=== PATIENT | male | born 1955 | race Hispanic/Latino ===

== ENCOUNTER 2019-01-15 07:24 | Day surgery (SDC) | payer MEDICAID ==
[2019-01-15] MEDS ORDERED: PROVENTIL IH NR (08:45)
[2019-01-15] MEDS ORDERED: NACL 0.9% 1000 ML 1,000 ML IV SCH (09:00)
[2019-01-15] MEDS ORDERED: WATER FOR IRRIG STERILE ONE (09:34)
[2019-01-15] MEDS ORDERED: WATER FOR IRRIG STERILE IR ONE (09:34)
[2019-01-15] MEDS ORDERED: DIPRIVAN 10 MG/ML IV ONE ×2 (09:35→09:36)
--- NOTE | 2019-01-15 10:11 | Short Stay Summary ---
Short Stay Documentation Date of service: 01/15/19 Narrative H&P: Patient presents for diagnostic colonoscopy for hematochezia and a history of weight loss. - History Past Medical History: COPD Past Surgical History: appendectomy Social history: smoking, alcohol abuse - Allergies and Medications Current Medications: Allergies No Known Allergies Allergy (Verified 05/27/15 17:29) Home Medications Medication Instructions Recorded Confirmed Last Taken Type Albuterol Sulfate [Proventil HFA] 1 - 2 puff IH Q4H PRN 10/25/14 01/15/19 01/15/19 History Metoprolol [Lopressor TAB] 50 mg PO BID #60 tablet 04/22/15 01/15/19 01/15/19 Rx Tiotropium [Spiriva] 1 puff IH QDAY #1 box 04/22/15 01/15/19 01/15/19 Rx Aspirin 81 mg PO DAILY 04/20/16 01/15/19 01/14/19 History Ipratropium/Albuterol Sulfate 1 ampul IH Q6HR PRN 04/20/16 01/15/19 01/15/19 History [DUONEB *Not for PRN Use*] Simvastatin (Nf) [Zocor TAB] 20 mg PO QHS #30 tablet 08/04/16 01/15/19 01/14/19 Rx NIFEdipine 60 mg PO DAILY 01/15/19 01/15/19 01/15/19 History Active Medications Sodium Chloride (Nacl 0.9% 1000 Ml) 1,000 mls @ 50 mls/hr IV DIRECT HERIBERTO Last Admin: 01/15/19 08:49 Dose: 50 mls/hr Documented by: - Physical exam General appearance: no acute distress, other (Thin body habitus) Integumentary: no rash, no growths, no abnormal pigmentation HEENT: Atraumatic, PERRLA, EOMI, Mucous membr. moist/pink Lungs: Normal air movement, Other (Mild expiratory wheezing) Breasts: deferred Heart: Regular rate, Normal S1, Normal S2, No murmurs Gastrointestinal: normoactive bowel sounds, no tenderness, no distended, no masses, no organomegaly Male Genitourinary: deferred Rectal Exam: normal exam-external/orifice, normal rectal tone, no mass Extremities: no ischemia, pulses intact, pulses symmetrical, No edema, normal temperature, normal color, Full ROM Neurological: Normal gait, Normal speech, Strength at 5/5 X4 ext, Normal tone, Sensation intact, Cranial nerves 3-12 NL - Brief post op/procedure progress note Date of procedure: 01/15/19 Findings: see dictated report Estimated blood loss: none Pathology: list (diminutive ascending colon polyp) Specimen disposition: to lab Condition: stable - Disposition Condition at discharge: Good Disposition: DC-01 TO HOME OR SELFCARE - Discharge Diagnoses (1) Hematochezia Status: Acute (2) Weight loss Status: Acute Short Stay Discharge Plan Activity: other (No driving for 24 hours) Weight Bearing Status: Weight Bear as Tolerated Diet: regular Follow up with: GT VELA MD [Primary Care Provider] - 7 Days
--- NOTE | 2019-01-15 10:15 | Operative Report ---
Operative Report Operative Report: Date of procedure: 01/15/2019 Preprocedure diagnosis: Recent hematochezia. Weight loss. Post procedure diagnosis: Diminutive ascending colon polyp. Internal hemorrhoids. Fair prep. Procedure: Colonoscopy to the cecum with cold snare polypectomy. Endoscopist: Dr. Asher Anesthesia: Monitored anesthesia care per anesthesia department Estimated blood loss: 0 Medications: Monitored anesthesia care. See separate report by anesthesia for details. After careful discussion of the nature and purpose of the procedure as well as details of the technique risks benefits and alternatives the patient gave consent. Please see recent history and physical from the office. The patient was placed in the left lateral decubitus position and medicated per anesthesia. A rectal exam was performed sphincter tone was normal there were no masses palpable. The expresscoinn 570 scope was passed transanally and advanced under continuous direct vision without difficulty to the cecum. The colon preparation was fair. There were some areas of thick liquid stool in the left colon which could not be completely aspirated clear and lavaged. The cecum was normal. The ascending colon reveals a 5mm, diminutive polyp which was removed with cold snare resection and retrieved by suction. The ascending colon otherwise was normal and on forward and retroflexed views. The transverse colon, descending colon, and sigmoid colon were normal. The rectum revealed small internal hemorrhoids on retroflexed view but was otherwise normal. The procedure was well-tolerated overall and the patient was observed in recovery. Conclusions: Diminutive ascending colon polyp. Internal hemorrhoids. No evidence of mass lesion. Fair prep in some areas of the left colon makes occlusion of small lesions less than 6 mm difficult. Plan: Repeat colonoscopy in 3-5 years. The patient will call the office regarding the pathology report in the next 10 days. Signed electronically: Hernandez Asher M.D.
[2019-01-15 10:57] VITALS: BP 104/75
[2019-01-15] MEDS ORDERED: XYLOCAINE MPF 2% ONE (13:30)
== END 2019-01-15 07:25 | disposition home or self-care (01) ==
LOC: GIO 07:24
PROVIDERS: ATTEND Internal Medicine Gastroenterology
DX: D12.2 Benign neoplasm of ascending colon (principal); K64.8 Other hemorrhoids; J44.9 Chronic obstructive pulmonary disease, unspecified; R74.8 Abnormal levels of other serum enzymes; I10 Essential (primary) hypertension; F17.210 Nicotine dependence, cigarettes, uncomplicated; D69.6 Thrombocytopenia, unspecified; E78.00 Pure hypercholesterolemia, unspecified; M19.90 Unspecified osteoarthritis, unspecified site; F10.239 Alcohol dependence with withdrawal, unspecified; Z90.49 Acquired absence of other specified parts of digestive tract; Z91.81 History of falling; Z98.890 Other specified postprocedural states; Z72.89 Other problems related to lifestyle; Z79.82 Long term (current) use of aspirin; Z86.73 Personal history of transient ischemic attack (TIA), and cerebral infarction without residual deficits
CPT/HCPCS: 45385; 88305; J2704; J7030

== ENCOUNTER 2019-08-27 06:14 | Inpatient (IN) | payer MEDICAID, OTHER ==
[2019-08-27] MEDS ORDERED: ALBUTEROL 2.5 MG/3 ML NEBU IH ONE ×2 (06:26→08:35)
[2019-08-27] MEDS ORDERED: IPRATROPIUM 0.02% NEBU 2.5 ML IH ONE (06:28)
[2019-08-27] MEDS ORDERED: MAGNESIUM SULFATE 2 GM/50 ML BAG IV ONE (06:53)
[2019-08-27] MEDS ORDERED: SODIUM CHLORIDE 0.9% 1000 ML 1,000 ML IV ONE ×2 (06:53→10:12)
[2019-08-27] MEDS ORDERED: methylPREDNISolone Sod Succinate 125 MG/2 ML INJ IV ONE (06:53)
--- NOTE | 2019-08-27 07:11 | Emergency Department Report ---
HPI - General Chief Complaint: Dyspnea/Respdistress Time Seen by Provider: 08/27/19 06:47 - HPI HPI: 63-year-old male presents to the emergency department via EMS from home with complaint of shortness of breath, wheezing, mixed dry and productive cough that has been going on for the past 4 days. The patient says "I think it is my COPD." Besides the COPD, the patient also has a history of CVA without residual deficits, osteoarthritis, hypertension. He is not oxygen dependent at home. He is a current tobacco smoker but denies any illicit drug use. The patient also complains of a one-month history of some intermittent left shoulder and upper arm pain. He denies any chest pain, lower extremity edema, back pain, fever, nausea, vomiting or diaphoresis. The patient has been using his home inhalers and nebulizer without any relief. His primary care physician is Dr. Dutta. No recent travel or sick contacts at home. ED Past Medical Hx - Past Medical History Previous Medical History?: Yes Hx Hypertension: Yes Hx CVA: Yes Hx Diabetes: No Hx Arthritis: Yes Hx Asthma: Yes Hx COPD: Yes (no home O2) Additional medical history: Irreg hearbeat. enlarged prostate. spinal stenosis. cyst on pancreas. pancreatitis - Surgical History Past Surgical History?: Yes Hx Appendectomy: Yes - Social History Smoking Status: Light Tobacco Smoker Substance Use Type: None - Medications Home Medications: Home Medications Medication Instructions Recorded Confirmed Last Taken Type Albuterol Sulfate [Proventil HFA] 1 - 2 puff IH Q4H PRN 10/25/14 01/15/19 01/15/19 History Metoprolol [Lopressor TAB] 50 mg PO BID #60 tablet 04/22/15 01/15/19 01/15/19 Rx Tiotropium [Spiriva] 1 puff IH QDAY #1 box 04/22/15 01/15/19 01/15/19 Rx Aspirin 81 mg PO DAILY 04/20/16 01/15/19 01/14/19 History Ipratropium/Albuterol Sulfate 1 ampul IH Q6HR PRN 04/20/16 01/15/19 01/15/19 History [DUONEB *Not for PRN Use*] Simvastatin (Nf) [Zocor TAB] 20 mg PO QHS #30 tablet 01/01/15/19 01/14/19 Rx NIFEdipine 60 mg PO DAILY 01/15/19 01/15/19 01/15/19 History ED Review of Systems ROS: Stated complaint: AMILCAR Other details as noted in HPI Comment: All other systems reviewed and negative Constitutional: denies: chills, fever Eyes: denies: eye pain, vision change ENT: denies: ear pain, throat pain Respiratory: cough, shortness of breath, wheezing Cardiovascular: denies: chest pain, edema Gastrointestinal: denies: abdominal pain, vomiting Genitourinary: denies: dysuria, discharge Musculoskeletal: arthralgia, myalgia. denies: back pain Skin: denies: rash, lesions Neurological: denies: headache, numbness, paresthesias Physical Exam - Physical Exam Vital Signs: Vital Signs 08/27/19 08/27/19 06:15 06:19 Temperature 97.7 F Pulse Rate 114 H Pulse Rate [ 114 H Anterior Bilateral Throughout] Respiratory 18 Rate Respiratory 18 Rate [Anterior Bilateral Throughout] Blood Pressure 125/87 O2 Sat by Pulse 94 Oximetry Physical Exam: GENERAL: The patient is well-developed well-nourished. HENT: Normocephalic. Atraumatic. Patient has moist mucous membranes. EYES: Extraocular motions are intact. NECK: Supple. Trachea is midline. CHEST/LUNGS: Moderate wheezing throughout the chest. There is some tachypnea but no accessory muscle use. There is no respiratory distress noted. HEART/CARDIOVASCULAR: Regular. There is mild tachycardia. There is no murmur. ABDOMEN: Abdomen is soft, nontender. Patient has normal bowel sounds. SKIN: Skin is warm and dry. NEURO: The patient is awake, alert, and oriented. The patient is cooperative. The patient has no focal neurologic deficits. Normal speech. MUSCULOSKELETAL: There is no tenderness or deformity. There is no evidence of acute injury. ED Course Vital Signs 08/27/19 08/27/19 06:15 06:19 Temperature 97.7 F Pulse Rate 114 H Pulse Rate [ 114 H Anterior Bilateral Throughout] Respiratory 18 Rate Respiratory 18 Rate [Anterior Bilateral Throughout] Blood Pressure 125/87 O2 Sat by Pulse 94 Oximetry ED Medical Decision Making - Lab Data Result diagrams: 08/27/19 07:03 08/27/19 07:03 - EKG Data -: EKG Interpreted by De EKG shows normal: sinus rhythm (PACs), axis (Left axis deviation), intervals, QRS complexes (Q waves to the inferior leads), ST-T waves (Nonspecific ST-T waves) Rate: tachycardia (117 bpm) - EKG Data When compared to previous EKG there are: no significant change Interpretation: unchanged when compared t (08/02/16) - Radiology Data Radiology results: report reviewed, image reviewed interpreted by me: Chest x-ray shows some patchy areas of infiltrates concerning for pneumonia. No pleural effusions. No pneumothorax. CTA chest with contrast INDICATION : SOB, elevated dimer. TECHNIQUE: Axial imaging performed through the chest, with contrast bolus timing set to maximize opacification of the pulmonary arteries. 3-plane MIP reformatted images were obtained. All CT scans at this location are performed using CT dose reduction for ALARA by means of automated exposure control. 100 mL of intravenous contrast administered. COMPARISON: Chest x-ray from the same day and CTA chest from 04/17/2015 FINDINGS: Bolus: Contrast bolus timing is adequate, although there is considerable respiratory motion artifact. PTE: No filling defect is present to suggest PTE. Mediastinum: Normal heart size. Mild atherosclerotic disease within the coronary arteries. A few shoddy mediastinal lymph nodes are present, one of which is technically pathologically enlarged measuring 1.2 cm in short axis on image #202 of series #3 which is subcarinal in location. Lungs: There is considerable respiratory motion artifact with moderately advanced emphysema. There our patchy multifocal airspace opacities throughout the lungs with no appreciable pleural effusion identified. Assessment for any nodularity is limited given significant motion. Upper abdomen: Limited imaging of the upper abdomen shows nothing acute. Simple cysts are seen in the kidneys. There is also mild bilateral adrenal thickening. Bones: Degenerative changes in the spine with nothing acute. Old bilateral fractures are present. IMPRESSION: 1. Motion limited exam with no appreciable PTE identified. 2. Moderate emphysema with diffuse patchy multifocal airspace disease and enlarged mediastinal lymph nodes. Findings suggest an evolving infectious/inflammatory process. - Medical Decision Making This patient presents with a four-day history of shortness of breath, wheezing, coughing. Patient does have moderate bronchospasm with some tachypnea without accessory muscle use. He was given albuterol in route, and then 2 different rounds of breathing treatments in the emergency department for a total of about 12.5 mg of albuterol. Chest x-ray initially shows some patchy infiltrates so blood cultures were sent and the patient was started on Rocephin and azithromycin. He does have a elevated BNP level of about 650 but there is no lower extremity swelling or signs of obvious pleural effusions or volume overload. Labs show hyponatremia with a sodium level of 125. He has been s tarted on some gentle IV fluid resuscitation. Secondary to an elevated d-dimer level, a CT angiography of the chest was done that does not show any pulmonary embolism and once again shows some interstitial infiltrates concerning for infectious versus inflammatory condition, but no obvious signs of volume overload. The patient is not oxygen dependent at home and his oxygen saturation remains in the mid 90s with 2 L oxygen via nasal cannula. The patient will be admitted to the hospital for further evaluation and treatment and was accepted for admission by the hospitalist service. - Differential Diagnosis CHF, Pneumonia, PE, COPD Critical Care Time: No Critical care attestation.: If time is entered above; I have spent that time in minutes in the direct care of this critically ill patient, excluding procedure time. ED Disposition Clinical Impression: COPD exacerbation, Bronchospasm, Hyponatremia syndrome Pneumonia Qualifiers: Pneumonia type: due to unspecified organism Laterality: unspecified laterality Lung location: unspecified part of lung Qualified Code(s): J18.9 - Pneumonia, unspecified organism Dyspnea Qualifiers: Dyspnea type: shortness of breath Qualified Code(s): R06.02 - Shortness of breath; R06.00 - Dyspnea, unspecified; R06.01 - Orthopnea Disposition: 09 OP ADMIT IP TO THIS HOSP Is pt being admited?: Yes Condition: Serious Instructions: Chronic Bronchitis (ED), Bacterial Pneumonia (ED) Referrals: JOANIE WILBURN MD [Primary Care Provider] - 3-5 Days Time of Disposition: 10:41
--- NOTE | 2019-08-27 07:24 | XRay Report ---
CHEST 1 VIEW INDICATION / CLINICAL INFORMATION: SOB. COMPARISON: 04/20/2016 FINDINGS: SUPPORT DEVICES: None. HEART / MEDIASTINUM: No significant abnormality. LUNGS / PLEURA: There is diffuse interstitial disease in the lungs which is mildly asymmetric greater on the right left. There is a small amount of pleural fluid bilaterally. No pneumothorax. ADDITIONAL FINDINGS: No significant additional findings. IMPRESSION: 1. There is diffuse bilateral interstitial opacities mildly greater on the right than the left. This is developed in the interval since the prior study. This likely represents pulmonary edema. Possibili ty of interval development of chronic interstitial lung disease is included in the differential diagn osis. Signer Name: Lavell Adler MD Signed: 08/27/2019 7:19 AM Workstation Name: [id number]
[2019-08-27 07:36] LABS: Basophils % (Auto) 0.2 % (0.0-1.8); Hematocrit 39.5 % (35.5-45.6); Hemoglobin 13.8 gm/dl (11.8-15.2); Lymphocytes % (Auto) 9.5 % (13.4-35.0); Mean Corpuscular HGB Conc 35 % (32-34); Mean Corpuscular Volume 92 fl (84-94); Monocytes # (Auto) 1.2 K/mm3 (0.0-0.8); Monocytes % (Auto) 12.1 % (0.0-7.3); Platelet Count 259 K/mm3 (140-440); Red Blood Count 4.28 M/mm3 (3.65-5.03); Red Cell Distribution Width 12.7 % (13.2-15.2)
[2019-08-27 08:01] LABS: BUN/Creatinine Ratio 18; Blood Urea Nitrogen 11 mg/dL (9-20); Calcium 8.9 mg/dL (8.4-10.2); Hemolysis Index 11
[2019-08-27] MEDS ORDERED: cefTRIAXone/NS 1 GM/50 ML 1 GM/50 ML BAG IV ONE (08:10)
--- NOTE | 2019-08-27 10:10 | Cat Scan Report ---
CTA chest with contrast INDICATION : SOB, elevated dimer. TECHNIQUE: Axial imaging performed through the chest, with contrast bolus timing set to maximize opa cification of the pulmonary arteries. 3-plane MIP reformatted images were obtained. All CT scans at this location are performed using CT dose reduction for ALARA by means of automated exposure control. 100 mL of intravenous contrast administered. COMPARISON: Chest x-ray from the same day and CTA chest from 04/17/2015 FINDINGS: Bolus: Contrast bolus timing is adequate, although there is considerable respiratory motion artifact . PTE: No filling defect is present to suggest PTE. Mediastinum: Normal heart size. Mild atherosclerotic disease within the coronary arteries. A few sh oddy mediastinal lymph nodes are present, one of which is technically pathologically enlarged measuri ng 1.2 cm in short axis on image #202 of series #3 which is subcarinal in location. Lungs: There is considerable respiratory motion artifact with moderately advanced emphysema. There o ur patchy multifocal airspace opacities throughout the lungs with no appreciable pleural effusion nabila ntified. Assessment for any nodularity is limited given significant motion. Upper abdomen: Limited imaging of the upper abdomen shows nothing acute. Simple cysts are seen in t he kidneys. There is also mild bilateral adrenal thickening. Bones: Degenerative changes in the spine with nothing acute. Old bilateral fractures are present. IMPRESSION: 1. Motion limited exam with no appreciable PTE identified. 2. Moderate emphysema with diffuse patchy multifocal airspace disease and enlarged mediastinal lymph nodes. Findings suggest an evolving infectious/inflammatory process. Signer Name: Dru Nair MD Signed: 08/27/2019 10:06 AM Workstation Name: [id number]
[2019-08-27] MEDS ORDERED: AZITHROMYCIN 500 MG in SODIUM CHLORIDE 0.9% 250ML 250 ML IV ONE (10:30)
[2019-08-27] MEDS ORDERED: ALBUTEROL 2.5 MG/3 ML NEBU IH PRN ×2 (17:57→18:34)
[2019-08-27] MEDS ORDERED: ALBUTEROL 2.5 MG/3 ML NEBU IH SCH (18:00)
[2019-08-27] MEDS ORDERED: ONDANSETRON 4 MG/2 ML INJ IV PRN (18:13)
[2019-08-27] MEDS ORDERED: ACETAMINOPHEN 325 MG TAB PO PRN (18:13)
[2019-08-27] MEDS ORDERED: NALOXONE 0.4 MG/1 ML INJ IV PRN (18:13)
--- NOTE | 2019-08-27 19:56 | History and Physical Report ---
History of Present Illness Date of examination: 08/27/19 Date of admission: 08/27/19 10:13 Chief complaint: sob npn productive cough History of present illness: 63.yo Past History Past Medical History: anemia, COPD, hypertension. denies: acute CA, atrial fib, arrhythmia, arthritis, CAD, cancer, diabetes, dialysis, DVT, ESRD, GERD, heart failure, hepatitis, HIV/AIDS, hyperthyroidism Past Surgical History: No surgical history Social history: lives with family, smoking Family history: hypertension, stroke Medications and Allergies Allergies Allergy/AdvReac Type Severity Reaction Status Date / Time No Known Allergies Allergy Verified 05/27/15 17:29 Home Medications Medication Instructions Recorded Confirmed Last Taken Type Albuterol Sulfate [Proventil HFA] 1 - 2 puff IH Q4H PRN 10/25/14 08/27/19 01/15/19 History Metoprolol [Lopressor TAB] 50 mg PO BID #60 tablet 04/22/15 08/27/19 08/20/19 Rx Tiotropium [Spiriva] 1 puff IH QDAY #1 box 04/22/15 08/27/19 01/15/19 Rx Aspirin 81 mg PO DAILY 04/20/16 08/27/19 08/20/19 History Ipratropium/Albuterol Sulfate 1 ampul IH Q6HR PRN 04/20/16 08/27/19 08/27/19 History [DUONEB *Not for PRN Use*] NIFEdipine 60 mg PO DAILY 01/15/19 08/27/19 08/20/19 History Active Meds: Active Medications Acetaminophen (Tylenol) 650 mg PO Q4H PRN PRN Reason: Pain MILD(1-3)/Fever >100.5/KAMARA Albuterol (Proventil) 2.5 mg IH Q4HRT PRN PRN Reason: Dyspnea Albuterol/Ipratropium (Duoneb *Not For Prn Use*) 1 ampul IH Q6HRT HERIBERTO Alprazolam (Xanax) 0.125 mg PO Q8H PRN PRN Reason: Anxiety Arformoterol Tartrate (Brovana Nebu) 15 mcg IH Q12HRT HERIBERTO Budesonide (Pulmicort) 0.5 mg IH Q12HRT HERIBERTO Enoxaparin Sodium (Enoxaparin) 40 mg SUB-Q QDAY HERIBERTO Famotidine (Pepcid) 20 mg PO BID [facility] Ceftriaxone Sodium (Rocephin/Ns 2 Gm/100 Ml) 2 gm in 100 mls @ 200 mls/hr IV Q24HR [facility]; Protocol Azithromycin 500 mg/ Sodium (Chloride) 250 mls @ 250 mls/hr IV Q24HR [facility]; Protocol Methylprednisolone Sodium Succinate (Solu-Medrol) 40 mg IV Q6HR [facility] Metoprolol Tartrate (Metoprolol) 50 mg PO BID [facility] Naloxone HCl (Naloxone) 0.1 mg IV Q2MIN PRN PRN Reason: Res Rate </= 8 or 02 SAT < 92% Nifedipine (Procardia Xl) 60 mg PO QDAY [facility] Ondansetron HCl (Zofran) 4 mg IV Q8H PRN PRN Reason: Nausea And Vomiting Oxycodone/Acetaminophen (Percocet 5/325) 1 tab PO Q6H PRN PRN Reason: Pain, Moderate (4-6) Sodium Chloride (Sodium Chloride Flush Syringe 10 Ml) 10 ml IV BID [facility] Sodium Chloride (Sodium Chloride Flush Syringe 10 Ml) 10 ml IV PRN PRN PRN Reason: LINE FLUSH Review of Systems Constitutional: fatigue, weakness, malaise, no weight loss, no weight gain, no fever, no chills, no sweats, no night sweats, no anorexia, no lethargy, no chronic headaches Ears, nose, mouth and throat: no ear pain, no ear discharge, no decreased hearing, no nose pain, no nasal congestion, no nasal discharge, no sinus pressure, no bleeding gums, no dental pain, no sore throat, no swelling in mouth, no voice changes, no pain front of neck, no neck fullness/pressure Cardiovascular: lightheadedness, shortness of breath, dyspnea on exertion, high blood pressure, decreased exercise tolerance, no chest pain, no orthopnea, no palpitations, no rapid/irregular heart beat, no edema, no syncope, no paroxysmal nocturnal dyspnea, no claudication, no phlebitis, no leg edema Respiratory: cough, shortness of breath, dyspnea on exertion, wheezing, no excessive sputum, no hemoptysis, no congestion, no pleurisy, no pain, no pain on inspiration, no snoring, no sleep apnea, no respiratory infections Gastrointestinal: no abdominal pain, no diarrhea, no constipation, no change in bowel habits, no hematemesis, no loss of appetite, no early satiety, no heartburn Rectal: no pain Musculoskeletal: no arm numbness/tingling, no low back pain, no shooting leg pain, no hot joints, no morning stiffness, no muscle cramps, no myalgias, no atrophy, no loss of height Neurological: no paralysis, no weakness, no parathesias, no tingling, no syncope, no ataxia, no convulsions, no aphasia, no motor disturbance, no double vision, no hearing difficulties, no burning pain, no paralysis, no spasticity Psychiatric: no change in libido, no suicidal ideation, no disorientation, no depression, no hopelessness, no anhedonia, no difficulties concentrating, no irritability, no mood swings Endocrine: no heat intolerance, no excessive thirst, no polydipsia, no polyuria, no weight change, no increase in ring/shoe/hat size, no deepening of the voice, no palpatations, no high blood sugars, no low blood sugars Hematologic/Lymphatic: no easy bruising, no lymphedema, no thrombophilia Allergic/Immunologic: no allergic rhinitis, no gluten intolerance, no seasonal allergies Exam - Constitutional Vitals: Temp Pulse Resp BP Pulse Ox 98.3 F 103 H 22 131/92 98 08/27/19 18:18 08/27/19 18:18 08/27/19 18:18 08/27/19 18:18 08/27/19 18:31 General appearance: Present: mild distress, well-nourished - EENT Eyes: Present: PERRL, EOM intact ENT: hearing intact, clear oral mucosa, dentition normal - Neck Neck: Present: supple, normal ROM - Respiratory Respiratory effort: other Respiratory: bilateral: diminished, rhonchi, wheezing - Cardiovascular Rhythm: regular Heart Sounds: Present: S1 & S2. Absent: rub, click - Extremities Extremities: pulses symmetrical, No edema Peripheral Pulses: within normal limits - Abdominal General gastrointestinal: Present: soft, non-tender, non-distended, normal bowel sounds - Integumentary Integumentary: Present: clear, warm, dry - Musculoskeletal Musculoskeletal: generalized weakness - Psychiatric Psychiatric: appropriate mood/affect, intact judgment & insight - Neurologic Neurologic: CNII-XII intact, moves all extremities VEL score - Vel Score Age > 65: (1) Yes Aspirin use within the Past 7 Days: (1) Yes 3 or more CAD Risk Factors: (0) No 2 or more Angina events in past 24 hrs: (0) No Known CAD with more than 50% Stenosis: (0) No Elevated Cardiac Markers: (0) No ST Deviation Greater than 0.5mm: (0) No VEL Score: 2 Results - Labs CBC & Chem 7: 08/27/19 07:03 08/27/19 07:03 Labs: Laboratory Last Values WBC 10.0 K/mm3 (4.5-11.0) 08/27/19 07:03 RBC 4.28 M/mm3 (3.65-5.03) 08/27/19 07:03 Hgb 13.8 gm/dl (11.8-15.2) 08/27/19 07:03 Hct 39.5 % (35.5-45.6) 08/27/19 07:03 MCV 92 fl (84-94) 08/27/19 07:03 MCH 32 pg (28-32) 08/27/19 07:03 MCHC 35 % (32-34) H 08/27/19 07:03 RDW 12.7 % (13.2-15.2) L 08/27/19 07:03 Plt Count 259 K/mm3 (140-440) 08/27/19 07:03 Lymph % (Auto) 9.5 % (13.4-35.0) L 08/27/19 07:03 [place] % (Auto) 12.1 % (0.0-7.3) H 08/27/19 07:03 Eos % (Auto) 0.0 % (0.0-4.3) 08/27/19 07:03 Baso % (Auto) 0.2 % (0.0-1.8) 08/27/19 07:03 Lymph # 1.0 K/mm3 (1.2-5.4) L 08/27/19 07:03 [place] # 1.2 K/mm3 (0.0-0.8) H 08/27/19 07:03 Eos # 0.0 K/mm3 (0.0-0.4) 08/27/19 07:03 Baso # 0.0 K/mm3 (0.0-0.1) 08/27/19 07:03 Seg Neutrophils % 78.2 % (40.0-70.0) H 08/27/19 07:03 Seg Neutrophils # 7.8 K/mm3 (1.8-7.7) H 08/27/19 07:03 D-Dimer 1195.26 ng/mlDDU (0-234) H 08/27/19 07:03 Sodium 125 mmol/L (137-145) L 08/27/19 07:03 Potassium 4.5 mmol/L (3.6-5.0) 08/27/19 07:03 Chloride 87.5 mmol/L (98-107) L 08/27/19 07:03 Carbon Dioxide 20 mmol/L (22-30) L 08/27/19 07:03 Anion Gap 22 mmol/L 08/27/19 07:03 BUN 11 mg/dL (9-20) 08/27/19 07:03 Creatinine 0.6 mg/dL (0.8-1.5) L 08/27/19 07:03 Estimated GFR > 60 ml/min 08/27/19 07:03 BUN/Creatinine Ratio 18 % 08/27/19 07:03 Glucose 106 mg/dL (75-100) H 08/27/19 07:03 Calcium 8.9 mg/dL (8.4-10.2) 08/27/19 07:03 Troponin T < 0.010 ng/mL (0.00-0.029) 08/27/19 07:03 NT-Pro-B Natriuret Pep 667.6 pg/mL (0-900) 08/27/19 07:26 - Imaging and Cardiology Chest x-ray: report reviewed, image reviewed CT scan - chest: report reviewed, image reviewed Assessment and Plan Advance Directives: Yes Plan of care discussed with patient/family: Yes - Patient Problems (1) Bronchospasm Current Visit: Yes Status: Acute Plan to address problem: Patient now with severe bronchospasms unable to be turned around quickly. Patient to be admitted CO to be exacerbation with bronchospasms. Patient to be started on IV steroids albuterol Atrovent nebulizers and LABA (2) COPD exacerbation Current Visit: Yes Status: Acute Plan to address problem: COPD exacerbation multifactorial underlying acute bronchitis as well as continued tobacco abuse. Patient states he is cutting down. Patient informed we will not get better while this is going on. Place patient on albuterol Atrovent nebulizers Solu-Medrol 40 mg IV every 8 wean accordingly. Treat und erlying etiology of acute bronchitis. Azithromycin IV. Follow blood culture data (3) Dyspnea Current Visit: Yes Status: Acute Qualifiers: Dyspnea type: shortness of breath Qualified Code(s): R06.02 - Shortness of breath; R06.00 - Dyspnea, unspecified; R06.01 - Orthopnea Plan to address problem: Dyspnea at rest patient most likely candidate for home O2. Advanced COPD treat underlying etiology COPD acute bronchitis. (4) Pneumonia Current Visit: Yes Status: Acute Qualifiers: Pneumonia type: due to unspecified organism Laterality: unspecified laterality Lung location: unspecified part of lung Qualified Code(s): J18.9 - Pneumonia, unspecified organism Plan to address problem: Patient pneumonia acute bronchitis unspecified organism. Follow-up culture data azithromycin 500 mg daily. (5) Tobacco abuse Current Visit: No Status: Chronic Plan to address problem: Spoke in detail about smoking cessation its effect on COPD and .
[2019-08-27] MEDS: ARFORMOTEROL 15 MCG/2 ML NEBU IH SCH (20:41)
[2019-08-27] MEDS: BUDESONIDE 0.5 MG/2 ML NEBU IH SCH (20:41)
[2019-08-27] MEDS: IPRATROPIUM/ALBUTEROL SULFATE 3 ML AMPUL.NEB IH SCH (20:41)
[2019-08-27] MEDS: ALPRAZolam 0.25 MG TAB PO PRN (21:28)
[2019-08-27] MEDS: oxyCODONE /ACETAMINOPHEN 5-325MG TAB PO PRN (21:28)
[2019-08-27] MEDS: METOPROLOL TARTRATE 50 MG TAB PO SCH (21:32)
[2019-08-27] MEDS ORDERED: METOPROLOL TARTRATE 25 MG TAB PO SCH (22:00)
[2019-08-27] MEDS: methylPREDNISolone Sod Succinate 40 MG/1 ML INJ IV SCH (23:33)
[2019-08-27] MEDS: FAMOTIDINE 20 MG TAB PO SCH (23:35)
[2019-08-28] MEDS: IPRATROPIUM/ALBUTEROL SULFATE 3 ML AMPUL.NEB IH SCH ×4 (02:20→20:22)
[2019-08-28] MEDS: oxyCODONE /ACETAMINOPHEN 5-325MG TAB PO PRN ×3 (03:45→21:41)
[2019-08-28] MEDS: ALPRAZolam 0.25 MG TAB PO PRN ×3 (05:34→23:03)
[2019-08-28] MEDS: methylPREDNISolone Sod Succinate 40 MG/1 ML INJ IV SCH ×4 (05:34→23:03)
[2019-08-28] MEDS: ARFORMOTEROL 15 MCG/2 ML NEBU IH SCH ×2 (08:21→20:22)
[2019-08-28] MEDS: BUDESONIDE 0.5 MG/2 ML NEBU IH SCH ×2 (08:21→20:22)
--- NOTE | 2019-08-28 09:43 | Progress Note ---
Assessment and Plan - Patient Problems (1) Bronchospasm Current Visit: Yes Status: Acute Plan to address problem: Patient spasms have improved significantly. Now only gets them with cough. Will add cough suppressant today. (2) COPD exacerbation Current Visit: Yes Status: Acute Plan to address problem: Improvement COPD exacerbation continue nebulizers treatment of underlying etiology of pneumonia acute bronchitis. Culture data negative so far. Start patient back on long-acting beta agonist. Will need follow-up with pulmonology upon discharge. (3) Dyspnea Current Visit: Yes Status: Acute Qualifiers: Dyspnea type: shortness of breath Qualified Code(s): R06.02 - Shortness of breath; R06.00 - Dyspnea, unspecified; R06.01 - Orthopnea Plan to address problem: Dyspnea at rest patient most likely candidate for home O2. Advanced COPD treat underlying etiology COPD acute bronchitis. (4) Pneumonia Current Visit: Yes Status: Acute Qualifiers: Pneumonia type: due to unspecified organism Laterality: unspecified laterality Lung location: unspecified part of lung Qualified Code(s): J18.9 - Pneumonia, unspecified organism Plan to address problem: Continue treatment azithromycin 500 mg daily. Follow-up blood culture data decongestants at [facility]orant. (5) Tobacco abuse Current Visit: No Status: Chronic Plan to address problem: Spoke in detail about smoking cessation its effect on COPD and . History Interval history: Patient doing somewhat better today. Breathing somewhat better still significant wheezing. Short of breath. Patient remains short of breath. Have very difficult time coughing unable to clear productive cough. Hospitalist Physical - Constitutional Vitals: Temp Pulse Resp BP Pulse Ox 97.8 F 98 H 18 130/71 96 08/28/19 05:22 08/28/19 08:21 08/28/19 08:21 08/28/19 05:22 08/28/19 08:24 General appearance: Present: mild distress, well-nourished - EENT Eyes: Present: PERRL, EOM intact ENT: hearing intact, clear oral mucosa, dentition normal, poor dentition - Neck Neck: Present: supple, normal ROM - Respiratory Respiratory: bilateral: diminished, rhonchi, wheezing - Cardiovascular Rhythm: regular Heart Sounds: Present: S1 & S2 - Extremities Extremities: no ischemia, pulses intact, No edema, normal temperature, normal color, Full ROM - Abdominal General gastrointestinal: soft, non-tender, non-distended, normal bowel sounds - Integumentary Integumentary: Present: clear, warm, dry - Psychiatric Psychiatric: appropriate mood/affect, intact judgment & insight - Neurologic Neurologic: CNII-XII intact, focal deficits, moves all extremities VEL score - Vel Score Age > 65: (1) Yes Aspirin use within the Past 7 Days: (1) Yes 3 or more CAD Risk Factors: (0) No 2 or more Angina events in past 24 hrs: (0) No Known CAD with more than 50% Stenosis: (0) No Elevated Cardiac Markers: (0) No ST Deviation Greater than 0.5mm: (0) No VEL Score: 2 Results - Labs CBC & Chem 7: 08/27/19 07:03 08/27/19 07:03 Labs: Laboratory Last Values WBC 10.0 K/mm3 (4.5-11.0) 08/27/19 07:03 RBC 4.28 M/mm3 (3.65-5.03) 08/27/19 07:03 Hgb 13.8 gm/dl (11.8-15.2) 08/27/19 07:03 Hct 39.5 % (35.5-45.6) 08/27/19 07:03 MCV 92 fl (84-94) 08/27/19 07:03 MCH 32 pg (28-32) 08/27/19 07:03 MCHC 35 % (32-34) H 08/27/19 07:03 RDW 12.7 % (13.2-15.2) L 08/27/19 07:03 Plt Count 259 K/mm3 (140-440) 08/27/19 07:03 Lymph % (Auto) 9.5 % (13.4-35.0) L 08/27/19 07:03 [place] % (Auto) 12.1 % (0.0-7.3) H 08/27/19 07:03 Eos % (Auto) 0.0 % (0.0-4.3) 08/27/19 07:03 Baso % (Auto) 0.2 % (0.0-1.8) 08/27/19 07:03 Lymph # 1.0 K/mm3 (1.2-5.4) L 08/27/19 07:03 [place] # 1.2 K/mm3 (0.0-0.8) H 08/27/19 07:03 Eos # 0.0 K/mm3 (0.0-0.4) 08/27/19 07:03 Baso # 0.0 K/mm3 (0.0-0.1) 08/27/19 07:03 Seg Neutrophils % 78.2 % (40.0-70.0) H 08/27/19 07:03 Seg Neutrophils # 7.8 K/mm3 (1.8-7.7) H 08/27/19 07:03 D-Dimer 1195.26 ng/mlDDU (0-234) H 08/27/19 07:03 Sodium 125 mmol/L (137-145) L 08/27/19 07:03 Potassium 4.5 mmol/L (3.6-5.0) 08/27/19 07:03 Chloride 87.5 mmol/L (98-107) L 08/27/19 07:03 Carbon Dioxide 20 mmol/L (22-30) L 08/27/19 07:03 Anion Gap 22 mmol/L 08/27/19 07:03 BUN 11 mg/dL (9-20) 08/27/19 07:03 Creatinine 0.6 mg/dL (0.8-1.5) L 08/27/19 07:03 Estimated GFR > 60 ml/min 08/27/19 07:03 BUN/Creatinine Ratio 18 % 08/27/19 07:03 Glucose 106 mg/dL (75-100) H 08/27/19 07:03 Calcium 8.9 mg/dL (8.4-10.2) 08/27/19 07:03 Troponin T < 0.010 ng/mL (0.00-0.029) 08/27/19 07:03 NT-Pro-B Natriuret Pep 667.6 pg/mL (0-900) 08/27/19 07:26 Active Medications - Current Medications Current Medications: Generic Name Dose Route Start Last Admin Trade Name Freq PRN Reason Stop Dose Admin Acetaminophen 650 mg 08/27/19 18:13 Tylenol PO Q4H PRN Pain MILD(1-3)/Fever >100.5/KAMARA Albuterol 2.5 mg 08/27/19 18:34 Proventil IH Q4HRT PRN Dyspnea Albuterol/Ipratropium 1 ampul 08/27/19 20:00 08/28/19 08:23 Duoneb *Not For Prn Use* IH Not Given Q6HRT [facility] Alprazolam 0.125 mg 08/27/19 18:11 08/28/19 05:34 Xanax PO 0.125 mg Q8H PRN Administration Anxiety Arformoterol Tartrate 15 mcg 08/27/19 20:00 08/28/19 08:21 Brovana Nebu IH 15 mcg Q12HRT HERIBERTO Administration Budesonide 0.5 mg 08/27/19 20:00 08/28/19 08:21 Pulmicort IH 0.5 mg Q12HRT HERIBERTO Administration Enoxaparin Sodium 40 mg 08/28/19 10:00 Enoxaparin SUB-Q QDAY [facility] Famotidine 20 mg 08/27/19 22:00 08/27/19 23:35 Pepcid PO 20 mg BID [facility] Administration Ceftriaxone Sodium 2 gm in 100 mls @ 200 mls/hr 08/28/19 10:00 Rocephin/Ns 2 Gm/100 Ml IV Q24HR [facility] Protocol Azithromycin 500 mg/ Sodium 250 mls @ 250 mls/hr 08/28/19 10:00 Chloride IV Q24HR [facility] Protocol Methylprednisolone Sodium Succinate 40 mg 08/28/19 00:00 08/28/19 05:34 Solu-Medrol IV 40 mg Q6HR HERIBERTO Administration Metoprolol Tartrate 50 mg 08/27/19 22:00 08/27/19 21:32 Metoprolol PO 50 mg BID [facility] Administration Naloxone HCl 0.1 mg 08/27/19 18:13 Naloxone IV Q2MIN PRN Res Rate </= 8 or 02 SAT < 92% Nicotine 14 mg 08/28/19 10:00 Habitrol TD QDAY HERIBERTO Nifedipine 60 mg 08/28/19 10:00 Procardia Xl PO QDAY [facility] Ondansetron HCl 4 mg 08/27/19 18:13 Zofran IV Q8H PRN Nausea And Vomiting Oxycodone/Acetaminophen 1 tab 08/27/19 18:13 08/28/19 03:45 Percocet 5/325 PO 1 tab Q6H PRN Administration Pain, Moderate (4-6) Sodium Chloride 10 ml 08/27/19 22:00 08/27/19 21:33 Sodium Chloride Flush Syringe 10 Ml IV 10 ml BID HERIBERTO Administration Sodium Chloride 10 ml 08/27/19 18:13 Sodium Chloride Flush Syringe 10 Ml IV PRN PRN LINE FLUSH Nutrition/Malnutrition Assess - Malnutrition Assessment Minimum of two criteria: No - Attestation Statement I have reviewed and agreed w/ Malnutrition eval & tx plan: No
[2019-08-28] MEDS ORDERED: NON-FORMULARY EACH (Nifedipine 60 MG) PO SCH (10:00)
[2019-08-28] MEDS: ENOXAPARIN 40 MG/0.4 ML INJ SUB-Q SCH (11:32)
[2019-08-28] MEDS: cefTRIAXone/NS 2 GM/100 ML 2 GM/100 ML BAG IV SCH (11:32)
[2019-08-28] MEDS: NICOTINE 14 MG/24 HR PATCH TD SCH (11:32)
[2019-08-28] MEDS: METOPROLOL TARTRATE 50 MG TAB PO SCH ×2 (11:32→21:43)
[2019-08-28] MEDS: NIFEdipine XL 60 MG TAB PO SCH (11:33)
[2019-08-28] MEDS: FAMOTIDINE 20 MG TAB PO SCH ×2 (11:33→21:43)
[2019-08-28] MEDS ORDERED: FLU VACC QUAD 2019-20 (3 YR UP)/PF 60 MCG/0.5 ML SYRINGE IM ONE (12:00)
[2019-08-28] MEDS: AZITHROMYCIN 500 MG in SODIUM CHLORIDE 0.9% 250ML 250 ML IV SCH (13:16)
[2019-08-28] MEDS ORDERED: PROMETHAZINE/CODEINE 6.25-10 MG ORAL LIQD 5 ML PO PRN (18:37)
[2019-08-29] MEDS: IPRATROPIUM/ALBUTEROL SULFATE 3 ML AMPUL.NEB IH SCH ×4 (01:32→20:42)
[2019-08-29] MEDS: oxyCODONE /ACETAMINOPHEN 5-325MG TAB PO PRN ×3 (05:54→22:22)
[2019-08-29] MEDS: methylPREDNISolone Sod Succinate 40 MG/1 ML INJ IV SCH ×3 (05:55→20:37)
[2019-08-29] MEDS: ARFORMOTEROL 15 MCG/2 ML NEBU IH SCH ×2 (07:48→20:42)
[2019-08-29] MEDS: BUDESONIDE 0.5 MG/2 ML NEBU IH SCH ×2 (07:49→20:42)
[2019-08-29 09:00] LABS: Hematocrit 35.7 % (35.5-45.6); Hemoglobin 12.1 gm/dl (11.8-15.2); Mean Corpuscular HGB Conc 34 % (32-34); Mean Corpuscular Volume 93 fl (84-94); Platelet Count 318 K/mm3 (140-440); Red Blood Count 3.84 M/mm3 (3.65-5.03); Red Cell Distribution Width 12.9 % (13.2-15.2)
[2019-08-29 09:06] LABS: BUN/Creatinine Ratio 30; Blood Urea Nitrogen 18 mg/dL (9-20); Calcium 8.7 mg/dL (8.4-10.2); Hemolysis Index 9
[2019-08-29] MEDS: NICOTINE 14 MG/24 HR PATCH TD SCH (10:00)
[2019-08-29] MEDS: cefTRIAXone/NS 2 GM/100 ML 2 GM/100 ML BAG IV SCH (10:10)
[2019-08-29] MEDS: AZITHROMYCIN 500 MG in SODIUM CHLORIDE 0.9% 250ML 250 ML IV SCH (10:10)
[2019-08-29] MEDS: ENOXAPARIN 40 MG/0.4 ML INJ SUB-Q SCH (10:10)
[2019-08-29] MEDS: FAMOTIDINE 20 MG TAB PO SCH ×2 (10:11→22:06)
[2019-08-29] MEDS: METOPROLOL TARTRATE 50 MG TAB PO SCH ×2 (10:11→22:21)
[2019-08-29] MEDS: ALPRAZolam 0.25 MG TAB PO PRN ×2 (10:12→22:22)
[2019-08-29 10:50] LABS: Basophils % (Manual) 0 % (0.0-1.8); Eosinophils % (Manual) 0 % (0.0-4.3); Monocytes % (Manual) 0 % (0.0-7.3); Total Cells Counted 100
[2019-08-29 10:51] LABS: Platelet Estimate Consistent w Auto; RBC Morphology Normal; Toxic Granulation Few
--- NOTE | 2019-08-29 13:30 | Progress Note ---
Assessment and Plan Assessment and plan: Acute COPD exacerbation. Continue bronchodilators and systemic steroids. Acute hypoxic respiratory failure. Etiology secondary to above. Continue O2 for supportive care. Bilateral pneumonia. CTA of chest revealed moderate multiple areas of infectious process Tobacco abuse. Patient has been counseled on smoking cessation. History Interval history: No new issues overnight. Hospitalist Physical - Constitutional Vitals: Temp Pulse Resp BP Pulse Ox 97.4 F L 81 20 95/58 97 08/29/19 11:08 08/29/19 11:08 08/29/19 11:08 08/29/19 11:08 08/29/19 11:08 General appearance: Present: no acute distress, well-nourished - EENT Eyes: Present: PERRL, EOM intact ENT: hearing intact, clear oral mucosa, dentition normal - Neck Neck: Present: supple, normal ROM - Respiratory Respiratory effort: normal Respiratory: bilateral: CTA - Cardiovascular Rhythm: regular Heart Sounds: Present: S1 & S2. Absent: gallop, rub - Extremities Extremities: no ischemia, No edema, Full ROM - Abdominal General gastrointestinal: soft, non-tender, non-distended, normal bowel sounds - Integumentary Integumentary: Present: clear, warm, dry - Neurologic Neurologic: CNII-XII intact, moves all extremities TADEO score - Tadeo Score Age > 65: (1) Yes Aspirin use within the Past 7 Days: (1) Yes 3 or more CAD Risk Factors: (0) No 2 or more Angina events in past 24 hrs: (0) No Known CAD with more than 50% Stenosis: (0) No Elevated Cardiac Markers: (0) No ST Deviation Greater than 0.5mm: (0) No TADEO Score: 2 Results - Labs CBC & Chem 7: 08/29/19 07:44 08/29/19 07:44 Labs: Laboratory Last Values WBC 13.8 K/mm3 (4.5-11.0) H 08/29/19 07:44 RBC 3.84 M/mm3 (3.65-5.03) 08/29/19 07:44 Hgb 12.1 gm/dl (11.8-15.2) 08/29/19 07:44 Hct 35.7 % (35.5-45.6) 08/29/19 07:44 MCV 93 fl (84-94) 08/29/19 07:44 MCH 31 pg (28-32) 08/29/19 07:44 MCHC 34 % (32-34) 08/29/19 07:44 RDW 12.9 % (13.2-15.2) L 08/29/19 07:44 Plt Count 318 K/mm3 (140-440) 08/29/19 07:44 Lymph % (Auto) 9.5 % (13.4-35.0) L 08/27/19 07:03 [place] % (Auto) 12.1 % (0.0-7.3) H 08/27/19 07:03 Eos % (Auto) 0.0 % (0.0-4.3) 08/27/19 07:03 Baso % (Auto) 0.2 % (0.0-1.8) 08/27/19 07:03 Lymph # 1.0 K/mm3 (1.2-5.4) L 08/27/19 07:03 [place] # 1.2 K/mm3 (0.0-0.8) H 08/27/19 07:03 Eos # 0.0 K/mm3 (0.0-0.4) 08/27/19 07:03 Baso # 0.0 K/mm3 (0.0-0.1) 08/27/19 07:03 Add Manual Diff Complete 08/29/19 07:44 Total Counted 100 08/29/19 07:44 Seg Neutrophils % [employer] 08/29/19 07:44 Seg Neuts % (Manual) 97.0 % (40.0-70.0) H 08/29/19 07:44 Band Neutrophils % 0 % 08/29/19 07:44 Lymphocytes % (Manual) 2.0 % (13.4-35.0) L 08/29/19 07:44 Reactive Lymphs % (Man) 0 % 08/29/19 07:44 Monocytes % (Manual) 0 % (0.0-7.3) 08/29/19 07:44 Eosinophils % (Manual) 0 % (0.0-4.3) 08/29/19 07:44 Basophils % (Manual) 0 % (0.0-1.8) 08/29/19 07:44 Metamyelocytes % 1.0 % 08/29/19 07:44 Myelocytes % 0 % 08/29/19 07:44 Promyelocytes % 0 % 08/29/19 07:44 Blast Cells % 0 % 08/29/19 07:44 Nucleated RBC % Not Reportable 08/29/19 07:44 Seg Neutrophils # 7.8 K/mm3 (1.8-7.7) H 08/27/19 07:03 Seg Neutrophils # Man 13.4 K/mm3 (1.8-7.7) H 08/29/19 07:44 Band Neutrophils # 0.0 K/mm3 08/29/19 07:44 Lymphocytes # (Manual) 0.3 K/mm3 (1.2-5.4) L 08/29/19 07:44 Abs React Lymphs (Man) 0.0 K/mm3 08/29/19 07:44 Monocytes # (Manual) 0.0 K/mm3 (0.0-0.8) 08/29/19 07:44 Eosinophils # (Manual) 0.0 K/mm3 (0.0-0.4) 08/29/19 07:44 Basophils # (Manual) 0.0 K/mm3 (0.0-0.1) 08/29/19 07:44 Metamyelocytes # 0.1 K/mm3 08/29/19 07:44 Myelocytes # 0.0 K/mm3 08/29/19 07:44 Promyelocytes # 0.0 K/mm3 08/29/19 07:44 Blast Cells # 0.0 K/mm3 08/29/19 07:44 WBC Morphology Not Reportable 08/29/19 07:44 Hypersegmented Neuts Not Reportable 08/29/19 07:44 Hyposegmented Neuts Not Reportable 08/29/19 07:44 Hypogranular Neuts Not Reportable 08/29/19 07:44 Smudge Cells Not Reportable 08/29/19 07:44 Toxic Granulation Few 08/29/19 07:44 Toxic Vacuolation Not Reportable 08/29/19 07:44 Dohle Bodies Not Reportable 08/29/19 07:44 Pelger-Huet Anomaly Not Reportable 08/29/19 07:44 Lia Rods Not Reportable 08/29/19 07:44 Platelet Estimate Consistent w auto 08/29/19 07:44 Clumped Platelets Not Reportable 08/29/19 07:44 Plt Clumps, EDTA Not Reportable 08/29/19 07:44 Large Platelets Not Reportable 08/29/19 07:44 Giant Platelets Not Reportable 08/29/19 07:44 Platelet Satelliting Not Reportable 08/29/19 07:44 Plt Morphology Comment Not Reportable 08/29/19 07:44 RBC Morphology Normal 08/29/19 07:44 Dimorphic RBCs Not Reportable 08/29/19 07:44 Polychromasia Not Reportable 08/29/19 07:44 Hypochromasia Not Reportable 08/29/19 07:44 Poikilocytosis Not Reportable 08/29/19 07:44 Anisocytosis Not Reportable 08/29/19 07:44 Microcytosis Not Reportable 08/29/19 07:44 Macrocytosis Not Reportable 08/29/19 07:44 Spherocytes Not Reportable 08/29/19 07:44 Pappenheimer Bodies Not Reportable 08/29/19 07:44 Sickle Cells Not Reportable 08/29/19 07:44 Target Cells Not Reportable 08/29/19 07:44 Tear Drop Cells Not Reportable 08/29/19 07:44 Ovalocytes Not Reportable 08/29/19 07:44 Helmet Cells Not Reportable 08/29/19 07:44 [place] Bodies Not Reportable 08/29/19 07:44 [place] Rings Not Reportable 08/29/19 07:44 Nebo Cells Not Reportable 08/29/19 07:44 Bite Cells Not Reportable 08/29/19 07:44 Crenated Cell Not Reportable 08/29/19 07:44 Elliptocytes Not Reportable 08/29/19 07:44 Acanthocytes (Spur) Not Reportable 08/29/19 07:44 Rouleaux Not Reportable 08/29/19 07:44 Hemoglobin C Crystals Not Reportable 08/29/19 07:44 Schistocytes Not Reportable 08/29/19 07:44 Malaria parasites Not Reportable 08/29/19 07:44 Patrick Bodies Not Reportable 08/29/19 07:44 Hem Pathologist Commnt No 08/29/19 07:44 D-Dimer 1195.26 ng/mlDDU (0-234) H 08/27/19 07:03 Sodium 131 mmol/L (137-145) L 08/29/19 07:44 Potassium 4.1 mmol/L (3.6-5.0) 08/29/19 07:44 Chloride 94.8 mmol/L (98-107) L 08/29/19 07:44 Carbon Dioxide 21 mmol/L (22-30) L 08/29/19 07:44 Anion Gap 19 mmol/L 08/29/19 07:44 BUN 18 mg/dL (9-20) 08/29/19 07:44 Creatinine 0.6 mg/dL (0.8-1.5) L 08/29/19 07:44 Estimated GFR > 60 ml/min 08/29/19 07:44 BUN/Creatinine Ratio 30 % 08/29/19 07:44 Glucose 126 mg/dL (75-100) H 08/29/19 07:44 Calcium 8.7 mg/dL (8.4-10.2) 08/29/19 07:44 Troponin T < 0.010 ng/mL (0.00-0.029) 08/27/19 07:03 NT-Pro-B Natriuret Pep 667.6 pg/mL (0-900) 08/27/19 07:26 Active Medications - Current Medications Current Medications: Generic Name Dose Route Start Last Admin Trade Name Freq PRN Reason Stop Dose Admin Acetaminophen 650 mg 08/27/19 18:13 Tylenol PO Q4H PRN Pain MILD(1-3)/Fever >100.5/KAMARA Albuterol 2.5 mg 08/27/19 18:34 Proventil IH Q4HRT PRN Dyspnea Albuterol/Ipratropium 1 ampul 08/27/19 20:00 08/29/19 07:49 Duoneb *Not For Prn Use* IH Not Given Q6HRT HERIBERTO Alprazolam 0.125 mg 08/27/19 18:11 08/29/19 10:12 Xanax PO 0.125 mg Q8H PRN Administration Anxiety Arformoterol Tartrate 15 mcg 08/27/19 20:00 08/29/19 07:48 Brovana Nebu IH 15 mcg Q12HRT HERIBERTO Administration Budesonide 0.5 mg 08/27/19 20:00 08/29/19 07:49 Pulmicort IH 0.5 mg Q12HRT HERIBERTO Administration Enoxaparin Sodium 40 mg 08/28/19 10:00 08/29/19 10:10 Enoxaparin SUB-Q 40 mg QDAY HERIBERTO Administration Famotidine 20 mg 08/27/19 22:00 08/29/19 10:11 Pepcid PO 20 mg BID HERIBERTO Administration Ceftriaxone Sodium 2 gm in 100 mls @ 200 mls/hr 08/28/19 10:00 08/29/19 10:10 Rocephin/Ns 2 Gm/100 Ml IV 200 mls/hr Q24HR HERIBERTO Administration Protocol Azithromycin 500 mg/ Sodium 250 mls @ 250 mls/hr 08/28/19 10:00 08/29/19 10:10 Chloride IV 09/01/19 10:59 250 mls/hr Q24HR HERIBERTO Administration Protocol Methylprednisolone Sodium Succinate 40 mg 08/28/19 00:00 08/29/19 05:55 Solu-Medrol IV 40 mg Q6HR HERIBERTO Administration Metoprolol Tartrate 50 mg 08/27/19 22:00 08/29/19 10:11 Metoprolol PO 50 mg BID HERIBERTO Administration Naloxone HCl 0.1 mg 08/27/19 18:13 Naloxone IV Q2MIN PRN Res Rate </= 8 or 02 SAT < 92% Nicotine 14 mg 08/28/19 10:00 08/28/19 11:32 Habitrol TD 14 mg QDAY HERIBERTO Administration Nifedipine 60 mg 08/28/19 10:00 08/28/19 11:33 Procardia Xl PO 60 mg QDAY HERIBERTO Administration Ondansetron HCl 4 mg 08/27/19 18:13 Zofran IV Q8H PRN Nausea And Vomiting Oxycodone/Acetaminophen 1 tab 08/27/19 18:13 08/29/19 05:54 Percocet 5/325 PO 1 tab Q6H PRN Administration Pain, Moderate (4-6) Promethazine HCl/Codeine 10 ml 08/28/19 18:37 Phenergan/Codeine 6.25-10 Mg/5ml PO Q6H PRN Cough Sodium Chloride 10 ml 08/27/19 22:00 08/28/19 21:43 Sodium Chloride Flush Syringe 10 Ml IV 10 ml BID HERIBERTO Administration Sodium Chloride 10 ml 08/27/19 18:13 Sodium Chloride Flush Syringe 10 Ml IV PRN PRN LINE FLUSH Nutrition/Malnutrition Assess - Dietary Evaluation Nutrition/Malnutrition Findings: Nutrition Notes Start: 08/28/19 11:40 Freq: Status: Active Protocol: Document 08/28/19 11:40 LM (Rec: 08/28/19 11:54 LM [id number]) Nutrition Notes Need for Assessment generated from: MD Order,money examiner,LOS, Education Initial or Follow up Assessment Current Diagnosis COPD,Hypertension Other Pertinent Diagnosis Pneumonia, bronchospasm, anemia, tobacco dependence Current Diet Cardiac Labs/Tests No new labs Pertinent Medications Solumedrol Height 5 ft 10 in Weight 67.8 kg Usual Body Weight 70 kg [place] Body Weight (kg) 75.45 BMI 21.4 Intake Prior to Admission Fair Weight change and time frame 3% wt loss in 8 days Weight Status Appropriate Subjective/Other Information MD consult for diet education, ONS; RN screen for MST. Pt stated he has been educated on hypertension diet many times and did not need any education . 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 Pt stated N/V has stopped in the hospital. Pt stated he is now able to eat again although he does not like the food. Pt with no food preferences. Pt has not yet tried the Ensure. Burn Absent Trauma Absent GI Symptoms None Current % PO Good (75-100%) Minimum of two criteria No Energy Intake (non-severe) <75% Estimated Energy Requirement >7 days Interpretation of Weight Loss (non- 1-2% in 1 week severe) #1 Nutrition Diagnosis Malnutrition Etiology N/V, COPD, pneumonia As Evidenced by Signs and Symptoms 3% wt loss in 8 days, <75% EER for 7 days Is patient on ventilator? No Is Patient Ambulatory and/or Out of Bed Yes REE-([place]-St. Jeor-ambulatory/OOB) [ [id number] [id number]] Calculation Used for Recommendations [place]-St Jeor Additional Notes Protein: 82-102g (1.2-1.5g/kg) Fluid: 1 ml/kcal Nutrition Intervention Change Diet Order: Continue cardiac Add Supplement/Snack (indicate name/kcal Ensure Enlive chocolate daily /protein ) Provides kCal: 350 Provides Protein (gm) 20 Goal #1 Meet at least 80% of energy and protein needs Anticipated Discharge Needs: Cardiac diet Follow-Up By: 08/30/19 Additional Comments F/U for PO/ONS intakes
[2019-08-29] MEDS: NIFEdipine XL 60 MG TAB PO SCH (16:52)
[2019-08-30] MEDS: methylPREDNISolone Sod Succinate 40 MG/1 ML INJ IV SCH ×3 (00:42→11:59)
[2019-08-30] MEDS: IPRATROPIUM/ALBUTEROL SULFATE 3 ML AMPUL.NEB IH SCH ×3 (03:06→13:31)
[2019-08-30] MEDS: oxyCODONE /ACETAMINOPHEN 5-325MG TAB PO PRN ×2 (05:43→11:59)
[2019-08-30] MEDS: ALPRAZolam 0.25 MG TAB PO PRN (07:57)
[2019-08-30] MEDS: BUDESONIDE 0.5 MG/2 ML NEBU IH SCH (08:17)
[2019-08-30] MEDS: ARFORMOTEROL 15 MCG/2 ML NEBU IH SCH (08:18)
--- NOTE | 2019-08-30 08:45 | Discharge Summary ---
Providers - Providers Date of Admission: 08/27/19 10:13 Date of discharge: 08/30/19 Attending physician: SCOTTY STONE 08/27/19 19:47 Consult to Dietitian/Nutrition [CONS] Routine Physician Instructions: Reason For Exam: Reason for Consult: Diet education Hospitalization Reason for admission: copd exac, pna Condition: Serious Hospital course: 63-year-old male presented through the emergency department with complaints of productive cough and shortness of breath. Chest x-ray was unremarkable but CTA of the chest revealed moderate emphysema with diffuse patchy multifocal airspace disease suggestive of infectious process. The patient was admitted with diagnosis of acute hypoxic respiratory failure, acute COPD exacerbation and pneumonia. Patient received inhaled and systemic steroids along with bronchodilators/nebulizer treatments. Patient also received antibiotics for the pneumonia. Patient has slow but significant improvement throughout hospitalization. Blood cultures remain negative. Patient is felt to have received maximal hospital benefit and will be discharged home. Dedicated discharge time 35 minutes. Disposition: - TO HOME OR SELFCARE Time spent for discharge: 35 - Discharge Diagnoses (1) COPD exacerbation Status: Acute (2) Pneumonia Status: Acute Qualifiers: Pneumonia type: due to unspecified organism Laterality: unspecified laterality Lung location: unspecified part of lung Qualified Code(s): J18.9 - Pneumonia, unspecified organism (3) COPD (chronic obstructive pulmonary disease) Status: Acute Qualifiers: COPD type: COPD with acute exacerbation Qualified Code(s): J44.1 - Chronic obstructive pulmonary disease with (acute) exacerbation Core Measure Documentation - Palliative Care Palliative Care/ Comfort Measures: Not Applicable - Core Measures Any of the following diagnoses?: none Exam - Constitutional Vitals: Temp Pulse Resp BP Pulse Ox 98.8 F 103 H 17 128/84 96 08/30/19 06:05 08/29/19 22:21 08/30/19 06:43 08/30/19 06:05 08/29/19 22:10 General appearance: Present: no acute distress, well-nourished - EENT Eyes: Present: PERRL ENT: hearing intact, clear oral mucosa - Neck Neck: Present: supple, normal ROM - Respiratory Respiratory effort: normal Respiratory: bilateral: CTA - Cardiovascular Heart Sounds: Present: S1 & S2. Absent: rub, click - Extremities Extremities: pulses symmetrical, No edema Peripheral Pulses: within normal limits - Abdominal General gastrointestinal: Present: soft, non-tender, non-distended, normal bowel sounds Male genitourinary: Present: normal - Integumentary Integumentary: Present: clear, warm, dry - Musculoskeletal Musculoskeletal: gait normal, strength equal bilaterally - Psychiatric Psychiatric: appropriate mood/affect, intact judgment & insight - Neurologic Neurologic: CNII-XII intact, moves all extremities Plan Activity: advance as tolerated Weight Bearing Status: Weight Bear as Tolerated Diet: regular Follow up with: JOANIE WILBURN MD [Referring] - 3-5 Days Prescriptions: cefUROXime [Ceftin] 500 mg PO Q12H #20 tablet Ipratropium/Albuterol Sulfate [DUONEB *Not for PRN Use*] 1 ampul IH Q6HR PRN 30 Days PRN Reason: Shortness Of Breath Metoprolol [Lopressor TAB] 50 mg PO BID #60 tablet NIFEdipine 60 mg PO DAILY 30 Days oxyCODONE /ACETAMINOPHEN [Percocet 5/325 mg] 1 tab PO Q6H PRN #12 tablet PRN Reason: Pain, Moderate (4-6) Tiotropium [Spiriva] 1 puff IH QDAY #1 box ALPRAZolam [Xanax TAB] 0.125 mg PO Q8H PRN #12 tablet PRN Reason: Anxiety
[2019-08-30] MEDS: cefTRIAXone/NS 2 GM/100 ML 2 GM/100 ML BAG IV SCH (09:33)
[2019-08-30] MEDS: AZITHROMYCIN 500 MG in SODIUM CHLORIDE 0.9% 250ML 250 ML IV SCH (09:34)
[2019-08-30] MEDS: METOPROLOL TARTRATE 50 MG TAB PO SCH (09:34)
[2019-08-30] MEDS: NIFEdipine XL 60 MG TAB PO SCH (09:34)
[2019-08-30] MEDS: NICOTINE 14 MG/24 HR PATCH TD SCH (09:35)
[2019-08-30] MEDS: FAMOTIDINE 20 MG TAB PO SCH (09:35)
[2019-08-30] MEDS: ENOXAPARIN 40 MG/0.4 ML INJ SUB-Q SCH (09:35)
[2019-08-30 12:52] VITALS: BP 118/81
== END 2019-08-30 13:58 | disposition home or self-care (01) | DRG 189 ==
LOC: ED 06:14 → 3A 10:13
PROVIDERS: ADMIT Internal Medicine; ATTEND Hospitalist
DX: J96.01 Acute respiratory failure with hypoxia (principal); J18.9 Pneumonia, unspecified organism; J44.1 Chronic obstructive pulmonary disease with (acute) exacerbation; E87.1 Hypo-osmolality and hyponatremia; J98.01 Acute bronchospasm; F17.210 Nicotine dependence, cigarettes, uncomplicated; I10 Essential (primary) hypertension; M19.90 Unspecified osteoarthritis, unspecified site; D64.9 Anemia, unspecified; Z71.6 Tobacco abuse counseling; Z86.73 Personal history of transient ischemic attack (TIA), and cerebral infarction without residual deficits; Z90.49 Acquired absence of other specified parts of digestive tract; Z82.49 Family history of ischemic heart disease and other diseases of the circulatory system; Z79.82 Long term (current) use of aspirin; Z79.899 Other long term (current) drug therapy
CPT/HCPCS: 36415; 71045; 71275; 80048; 83880; 84484; 85007; 85025; 85379; 87040; 90686; 93005; 93010; 94640; 94644; 94760; 99406; G0378; J0456; J0696; J1650; J2920; J2930; J3475; J7030; J7050; Q9967

== ENCOUNTER 2019-10-01 03:19 | Inpatient (IN) | payer OTHER ==
[2019-10-01] MEDS ORDERED: methylPREDNISolone Sod Succinate 125 MG/2 ML INJ ONE (03:37)
[2019-10-01] MEDS ORDERED: MAGNESIUM SULFATE 2 GM/50 ML BAG IV ONE ×2 (03:37→03:44)
[2019-10-01] MEDS ORDERED: IPRATROPIUM 0.02% NEBU 2.5 ML IH ONE ×2 (03:41→03:44)
[2019-10-01] MEDS ORDERED: ALBUTEROL 2.5 MG/3 ML NEBU IH ONE ×2 (03:42→03:44)
[2019-10-01] MEDS ORDERED: methylPREDNISolone Sod Succinate 125 MG/2 ML INJ IV ONE (03:44)
--- NOTE | 2019-10-01 03:50 | Emergency Department Report ---
HPI - General Time Seen by Provider: 10/01/19 03:41 - HPI HPI: 63-year-old male presents to the emergency department via EMS from home with a complaint of a 3-day history of progressively worsening shortness of breath, wheezing and coughing. He has a history of COPD but is not oxygen dependent at home. He also has a history of CVA without residual deficits, osteoarthritis and hypertension. He is a tobacco smoker but denies any illicit drug use. The patient was just admitted to this hospital last month for similar symptoms. His primary care physician is a Dr. Dutta. No recent travel or sick contacts at home. Denies any fever, chest pain, nausea, vomiting or diaphoresis. ED Past Medical Hx - Past Medical History Hx Hypertension: Yes Hx CVA: Yes Hx Diabetes: No Hx Arthritis: Yes Hx Asthma: Yes Hx COPD: Yes Additional medical history: Irreg hearbeat. enlarged prostate. spinal stenosis. cyst on pancreas. pancreatitis - Surgical History Hx Appendectomy: Yes - Social History Smoking Status: Heavy Tobacco Smoker - Medications Home Medications: Home Medications Medication Instructions Recorded Confirmed Last Taken Type Albuterol Sulfate [Proventil HFA] 1 - 2 puff IH Q4H PRN 10/25/14 08/27/19 01/15/19 History Aspirin 81 mg PO DAILY 04/20/16 08/27/19 08/20/19 History ALPRAZolam [Xanax TAB] 0.125 mg PO Q8H PRN #12 tablet 08/30/19 Unknown Rx Ipratropium/Albuterol Sulfate 1 ampul IH Q6HR PRN 30 Days 08/30/19 Unknown Rx [DUONEB *Not for PRN Use*] Metoprolol [Lopressor TAB] 50 mg PO BID tablet 08/30/19 Unknown Rx Metoprolol [Lopressor TAB] 50 mg PO BID #60 tablet 08/30/19 Unknown Rx NIFEdipine 60 mg PO DAILY 30 Days 08/30/19 Unknown Rx Tiotropium [Spiriva] 1 puff IH QDAY #1 box 08/30/19 Unknown Rx cefUROXime [Ceftin] 500 mg PO Q12H #20 tablet 08/30/19 Unknown Rx methylPREDNISolone [Medrol 4MG 4 mg PO DAILY #1 tab.ds.pk 08/30/19 Unknown Rx DOSEPAK (21 tabs)] oxyCODONE /ACETAMINOPHEN [Percocet 1 tab PO Q6H PRN #12 tablet 08/30/19 Unknown Rx 5/325 mg] ED Review of Systems ROS: Stated complaint: AMILCAR Other details as noted in HPI Comment: All other systems reviewed and negative Constitutional: denies: chills, fever Eyes: denies: eye pain, vision change ENT: denies: ear pain, throat pain Respiratory: cough, shortness of breath, wheezing Cardiovascular: denies: chest pain, edema Gastrointestinal: denies: abdominal pain Genitourinary: denies: dysuria, discharge Musculoskeletal: denies: back pain, arthralgia Skin: denies: rash, lesions Neurological: denies: headache, weakness Physical Exam - Physical Exam Physical Exam: GENERAL: The patient is well-developed well-nourished. HENT: Normocephalic. Atraumatic. Patient has moist mucous membranes. EYES: Extraocular motions are intact. NECK: Supple. Trachea is midline. CHEST/LUNGS: Moderate to severe wheezing throughout the chest. There is some tachypnea and accessory muscle use. There is respiratory distress noted. A dry cough is heard during examination. HEART/CARDIOVASCULAR: Regular. There is no tachycardia. ABDOMEN: Abdomen is soft, nontender. Patient has normal bowel sounds. SKIN: Skin is warm and dry. NEURO: The patient is awake, alert, and oriented. The patient is cooperative. The patient has no focal neurologic deficits. Normal speech. MUSCULOSKELETAL: There is no tenderness or deformity. There is no evidence of acute injury. ED Medical Decision Making - Lab Data Result diagrams: 10/01/19 03:53 10/01/19 03:53 - Radiology Data Radiology results: image reviewed interpreted by me: Chest x-ray shows some hyperinflation of the lungs and flattening of the diaphragms. No obvious pneumonia or pleural effusions. - Medical Decision Making This patient presents to the emergency department with a 3-day history of p rogressively worsening shortness of breath, wheezing, coughing. He has a history of COPD and continues to smoke cigarettes. Chest x-ray does not show any pneumonia, pleural effusions, pneumothorax, focal consolidation, or any other acute process. The patient had some increased work of breathing and signs of respiratory distress upon arrival to the emergency department. He was given Solu-Medrol, magnesium, and a continuous breathing treatment with both albuterol and Atrovent. After the medications, the patient was reevaluated, and he still has moderate bronchospasm and some tachypnea but he does appear improved. Patient's labs have otherwise been unremarkable. The patient will be admitted to the hospital for further evaluation and treatment and was accepted for admission by the hospitalist, Dr. Newby. - Differential Diagnosis COPD, pneumonia, CHF, viral URI Critical Care Time: Yes Critical care time in (mins) excluding proc time.: 31 Critical care attestation.: If time is entered above; I have spent that time in minutes in the direct care of this critically ill patient, excluding procedure time. Due to the immediate potential for life-threatening deterioration due to underlying pulmonary condition, I spent 31 minutes of critical care time with the patient. Critical care time was spent on this patient in doing his initial evaluation, multiple re-evaluations, ordering and interpretation of labs and imaging, treatment with IV Solu-Medrol and magnesium, as well as bronchodilators, discussion with the patient. Critical Care Time: 31 minutes ED Disposition Clinical Impression: Tobacco abuse, COPD exacerbation, Hyponatremia, Acute respiratory distress Disposition: OP ADMIT IP TO THIS HOSP Is pt being admited?: Yes Condition: Serious Instructions: Chronic Obstructive Pulmonary Disease (ED) Time of Disposition: 05:36
[2019-10-01 04:10] LABS: Basophils % (Auto) 0.5 % (0.0-1.8); Eosinophils # (Auto) 0.1 K/mm3 (0.0-0.4); Eosinophils % (Auto) 1.3 % (0.0-4.3); Hematocrit 44.9 % (35.5-45.6); Hemoglobin 15.3 gm/dl (11.8-15.2); Lymphocytes # (Auto) 1.8 K/mm3 (1.2-5.4); Mean Corpuscular HGB Conc 34 % (32-34); Mean Corpuscular Volume 90 fl (84-94); Monocytes # (Auto) 0.9 K/mm3 (0.0-0.8); Monocytes % (Auto) 11.3 % (0.0-7.3); Platelet Count 222 K/mm3 (140-440); Red Blood Count 4.97 M/mm3 (3.65-5.03); Red Cell Distribution Width 13.5 % (13.2-15.2)
[2019-10-01 04:20] LABS: INR 1.03 (0.87-1.13)
[2019-10-01 04:37] LABS: Alanine Aminotransferase 11 units/L (7-56); Albumin 4.3 g/dL (3.9-5); BUN/Creatinine Ratio 10; Blood Urea Nitrogen 8 mg/dL (9-20); Calcium 9.4 mg/dL (8.4-10.2); Hemolysis Index 8
[2019-10-01 04:46] LABS: ABG HCO3 24.4 mmol/L (20.0-26.0); ABG Methemoglobin 0.6 % (0.0-1.5); ABG Oxygen Saturation 95.6 % (95.0-99.0); ABG PCO2 43.3 mm Hg; ABG PH 7.369 pH Units (7.350-7.450); ABG PO2 76.2 mm Hg (80.0-90.0)
--- NOTE | 2019-10-01 04:48 | XRay Report ---
CHEST 1 VIEW INDICATION / CLINICAL INFORMATION: SOB. COMPARISON: 08/27/2019 FINDINGS: SUPPORT DEVICES: None. HEART / MEDIASTINUM: No significant abnormality. LUNGS / PLEURA: Mild diffuse interstitial disease No pneumothorax. ADDITIONAL FINDINGS: No significant additional findings. IMPRESSION: There is mild diffuse interstitial disease less prominent than on prior examination dated 08/27/2019 a nd may be chronic Signer Name: Ellis Lopez MD FACR Signed: 10/01/2019 4:44 AM Workstation Name: [email or web address]
[2019-10-01] MEDS ORDERED: SODIUM CHLORIDE 0.9% 1000 ML 1,000 ML IV ONE (05:36)
[2019-10-01] MEDS ORDERED: ONDANSETRON 4 MG/2 ML INJ IV PRN (06:10)
--- NOTE | 2019-10-01 06:14 | History and Physical Report ---
History of Present Illness History of present illness: 63-year-old man with a history of COPD, hypertension, osteoarthritis comes emergency room for evaluation. Patient states that 4 days ago he started having shortness of breath, cough productive of white phlegm. He has been using his nebulizer treatment without any improvement in his symptoms, he comes emergency room for further evaluation because his symptoms worsen. In the emergency room he was given steroids, breathing treatments, patient will be admitted for COPD exacerbation Review Of Systems: Constitutional: no weight loss, fever, chills Ears, eyes, nose, mouth and throat: no nasal congestion, no nasal discharge, no sinus pressure, blurry vision, diplopia Neck: No neck pain or rigidity. Cardiovascular: No palpitations, chest pain Respiratory: +shortness of breath, cough Gastrointestinal: No hematochezia Genitourinary : no dysuria, frequency Musculoskeletal: no muscle ache , joint pain Integumentary: no rash, no pruritis Neurological: no parathesias, focal weakness Endocrine: no cold or heat intolerance, no polyuria or polydipsia Hematologic/Lymphatic: no easy bruising, no easy bleeding, no gland swelling Allergic/Immunologic: no urticaria, no angioedema. PAST MEDICAL HISTORY: COPD, hypertension, osteoarthritis PAST SURGICAL HISTORY: Appendectomy SOCIAL HISTORY: Denies alcohol, +tobacco, no drugs FAMILY HISTORY: Hypertension Medications and Allergies Allergies Allergy/AdvReac Type Severity Reaction Status Date / Time No Known Allergies Allergy Verified 05/27/15 17:29 Home Medications Medication Instructions Recorded Confirmed Last Taken Type Albuterol Sulfate [Proventil HFA] 1 - 2 puff IH Q4H PRN 10/25/14 08/27/19 01/15/19 History Aspirin 81 mg PO DAILY 04/20/16 08/27/19 08/20/19 History ALPRAZolam [Xanax TAB] 0.125 mg PO Q8H PRN #12 tablet 08/30/19 Unknown Rx Ipratropium/Albuterol Sulfate 1 ampul IH Q6HR PRN 30 Days 08/30/19 Unknown Rx [DUONEB *Not for PRN Use*] Metoprolol [Lopressor TAB] 50 mg PO BID tablet 08/30/19 Unknown Rx Metoprolol [Lopressor TAB] 50 mg PO BID #60 tablet 08/30/19 Unknown Rx NIFEdipine 60 mg PO DAILY 30 Days 08/30/19 Unknown Rx Tiotropium [Spiriva] 1 puff IH QDAY #1 box 08/30/19 Unknown Rx cefUROXime [Ceftin] 500 mg PO Q12H #20 tablet 08/30/19 Unknown Rx methylPREDNISolone [Medrol 4MG 4 mg PO DAILY #1 tab.ds.pk 08/30/19 Unknown Rx DOSEPAK (21 tabs)] oxyCODONE /ACETAMINOPHEN [Percocet 1 tab PO Q6H PRN #12 tablet 08/30/19 Unknown Rx 5/325 mg] Active Meds: Active Medications Acetaminophen (Tylenol) 650 mg PO Q4H PRN PRN Reason: Pain MILD(1-3)/Fever >100.5/KAMARA Albuterol/Ipratropium (Duoneb *Not For Prn Use*) 1 ampul IH Q6HRT HERIBERTO Enoxaparin Sodium (Enoxaparin) 30 mg SUB-Q QDAY HERIBERTO Sodium Chloride (Nacl 0.9% 1000 Ml) 1,000 mls @ 125 mls/hr IV ONCE ONE Stop: 10/01/19 13:35 Methylprednisolone Sodium Succinate (Solu-Medrol) 125 mg IV Q6HR HERIBERTO Ondansetron HCl (Zofran) 4 mg IV Q8H PRN PRN Reason: Nausea And Vomiting Sodium Chloride (Sodium Chloride Flush Syringe 10 Ml) 10 ml IV BID HERIBERTO Sodium Chloride (Sodium Chloride Flush Syringe 10 Ml) 10 ml IV PRN PRN PRN Reason: LINE FLUSH Exam - Constitutional Vitals: Temp Pulse Resp BP Pulse Ox 97.9 F 105 H 26 H 146/95 95 10/01/19 03:51 10/01/19 03:51 10/01/19 04:03 10/01/19 03:51 10/01/19 04:03 Results - Labs CBC & Chem 7: 10/01/19 03:53 10/01/19 03:53 Labs: Abnormal lab results 10/01/19 10/01/19 10/01/19 Range/Units 03:53 03:53 04:35 Hgb 15.3 H (11.8-15.2) gm/dl [place] % (Auto) 11.3 H (0.0-7.3) % [place] # 0.9 H (0.0-0.8) K/mm3 ABG pO2 76.2 L (80.0-90.0) mm Hg Oxyhemoglobin 92.4 L (95.0-99.0) % Sodium 128 L (137-145) mmol/L Chloride 88.1 L (98-107) mmol/L BUN 8 L (9-20) mg/dL Glucose 101 H (75-100) mg/dL - Imaging and Cardiology EKG: report reviewed Chest x-ray: report reviewed Assessment and Plan Assessment COPD exacerbation Start high-dose steroids, nebulizer treatments Hypertension Continue outpatient medications DVT prophylaxis
[2019-10-01] MEDS: IPRATROPIUM/ALBUTEROL SULFATE 3 ML AMPUL.NEB IH SCH ×3 (08:50→20:50)
--- NOTE | 2019-10-01 10:58 | Event Note ---
Date: 10/01/19 Patient was admitted early this morning with acute exacerbation of COPD Medical records and treatment plan reviewed Agree with the current management We will closely monitor and adjust as needed Assessment and plan --COPD exacerbation Start high-dose steroids, nebulizer treatments --Hypertension Continue outpatient medications --Hyponatremia; IV normal saline closely monitor electrolytes --DVT prophylaxis Plan of care reviewed with the patient and his nurse
[2019-10-01] MEDS: ENOXAPARIN 40 MG/0.4 ML INJ SUB-Q SCH (11:59)
[2019-10-01] MEDS: methylPREDNISolone Sod Succinate 125 MG/2 ML INJ IV SCH (11:59)
[2019-10-02] MEDS: methylPREDNISolone Sod Succinate 125 MG/2 ML INJ IV SCH ×4 (00:33→23:22)
[2019-10-02] MEDS: IPRATROPIUM/ALBUTEROL SULFATE 3 ML AMPUL.NEB IH SCH ×7 (02:40→21:29)
[2019-10-02 06:32] LABS: Hematocrit 40.1 % (35.5-45.6); Hemoglobin 13.6 gm/dl (11.8-15.2); Mean Corpuscular HGB Conc 34 % (32-34); Mean Corpuscular Volume 90 fl (84-94); Platelet Count 193 K/mm3 (140-440); Red Blood Count 4.45 M/mm3 (3.65-5.03)
[2019-10-02 06:50] LABS: BUN/Creatinine Ratio 19; Blood Urea Nitrogen 13 mg/dL (9-20); Hemolysis Index 8
[2019-10-02 07:45] LABS: Anisocytosis 1+; Basophils % (Manual) 0 % (0.0-1.8); Eosinophils % (Manual) 0 % (0.0-4.3); Platelet Estimate Consistent w Auto; Total Cells Counted 100
--- NOTE | 2019-10-02 08:54 | Progress Note ---
Assessment and Plan Assessment and plan: --Acute exacerbation of COPD ; Oxygen titrate O2 sats to more than 90% , nebulizers Tapering dose of IV steroids, inhalation steroids Supportive care --Hyponatremia; Continue normal saline, monitor electrolytes --Hypertension Resume home antihypertensives, PRN medications --Ongoing tobacco use; Smoking cessation counseling, advised nicotine patch Preventive measures discussed with the patient Spent 17 minutes --DVT prophylaxis; Lovenox Monitor closely and adjust management as needed History Interval history: Patient seen and examined medical records reviewed Patient was admitted with worsening shortness of breath and severe hyponatremia Patient complains of generalized weakness some shortness of breath Alert awake oriented Vital signs reviewed Hospitalist Physical - Constitutional Vitals: Temp Pulse Resp BP Pulse Ox 97.8 F 119 H 18 118/65 94 10/02/19 05:21 10/02/19 05:21 10/02/19 05:21 10/02/19 05:21 10/02/19 05:21 General appearance: Present: no acute distress, well-nourished - EENT Eyes: Present: PERRL, EOM intact - Neck Neck: Present: supple, normal ROM - Respiratory Respiratory effort: normal Respiratory: bilateral: diminished, negative: rales, rhonchi, wheezing - Cardiovascular Rhythm: regular Heart Sounds: Present: S1 & S2 - Extremities Extremities: no ischemia, pulses intact - Abdominal General gastrointestinal: soft, non-tender, non-distended, normal bowel sounds - Integumentary Integumentary: Present: clear, warm - Psychiatric Psychiatric: appropriate mood/affect, cooperative - Neurologic Neurologic: CNII-XII intact, moves all extremities TADEO score - Tadeo Score Age > 65: (1) Yes Aspirin use within the Past 7 Days: (1) Yes 3 or more CAD Risk Factors: (0) No 2 or more Angina events in past 24 hrs: (0) No Known CAD with more than 50% Stenosis: (0) No Elevated Cardiac Markers: (0) No ST Deviation Greater than 0.5mm: (0) No TADEO Score: 2 Results - Labs CBC & Chem 7: 10/02/19 06:13 10/02/19 06:13 Labs: Laboratory Last Values WBC 10.2 K/mm3 (4.5-11.0) 10/02/19 06:13 RBC 4.45 M/mm3 (3.65-5.03) 10/02/19 06:13 Hgb 13.6 gm/dl (11.8-15.2) 10/02/19 06:13 Hct 40.1 % (35.5-45.6) 10/02/19 06:13 MCV 90 fl (84-94) 10/02/19 06:13 MCH 31 pg (28-32) 10/02/19 06:13 MCHC 34 % (32-34) 10/02/19 06:13 RDW 13.0 % (13.2-15.2) L 10/02/19 06:13 Plt Count 193 K/mm3 (140-440) 10/02/19 06:13 Lymph % (Auto) 23.0 % (13.4-35.0) 10/01/19 03:53 [place] % (Auto) 11.3 % (0.0-7.3) H 10/01/19 03:53 Eos % (Auto) 1.3 % (0.0-4.3) 10/01/19 03:53 Baso % (Auto) 0.5 % (0.0-1.8) 10/01/19 03:53 Lymph # 1.8 K/mm3 (1.2-5.4) 10/01/19 03:53 [place] # 0.9 K/mm3 (0.0-0.8) H 10/01/19 03:53 Eos # 0.1 K/mm3 (0.0-0.4) 10/01/19 03:53 Baso # 0.0 K/mm3 (0.0-0.1) 10/01/19 03:53 Add Manual Diff Complete 10/02/19 06:13 Total Counted 100 10/02/19 06:13 Seg Neutrophils % Enamel Pulverizer 10/02/19 06:13 Seg Neuts % (Manual) 94.0 % (40.0-70.0) H 10/02/19 06:13 Band Neutrophils % 0 % 10/02/19 06:13 Lymphocytes % (Manual) 4.0 % (13.4-35.0) L 10/02/19 06:13 Reactive Lymphs % (Man) 0 % 10/02/19 06:13 Monocytes % (Manual) 2.0 % (0.0-7.3) 10/02/19 06:13 Eosinophils % (Manual) 0 % (0.0-4.3) 10/02/19 06:13 Basophils % (Manual) 0 % (0.0-1.8) 10/02/19 06:13 Metamyelocytes % 0 % 10/02/19 06:13 Myelocytes % 0 % 10/02/19 06:13 Promyelocytes % 0 % 10/02/19 06:13 Blast Cells % 0 % 10/02/19 06:13 Nucleated RBC % Not Reportable 10/02/19 06:13 Seg Neutrophils # 4.9 K/mm3 (1.8-7.7) 10/01/19 03:53 Seg Neutrophils # Man 9.6 K/mm3 (1.8-7.7) H 10/02/19 06:13 Band Neutrophils # 0.0 K/mm3 10/02/19 06:13 Lymphocytes # (Manual) 0.4 K/mm3 (1.2-5.4) L 10/02/19 06:13 Abs React Lymphs (Man) 0.0 K/mm3 10/02/19 06:13 Monocytes # (Manual) 0.2 K/mm3 (0.0-0.8) 10/02/19 06:13 Eosinophils # (Manual) 0.0 K/mm3 (0.0-0.4) 10/02/19 06:13 Basophils # (Manual) 0.0 K/mm3 (0.0-0.1) 10/02/19 06:13 Metamyelocytes # 0.0 K/mm3 10/02/19 06:13 Myelocytes # 0.0 K/mm3 10/02/19 06:13 Promyelocytes # 0.0 K/mm3 10/02/19 06:13 Blast Cells # 0.0 K/mm3 10/02/19 06:13 WBC Morphology Not Reportable 10/02/19 06:13 Hypersegmented Neuts Not Reportable 10/02/19 06:13 Hyposegmented Neuts Not Reportable 10/02/19 06:13 Hypogranular Neuts Not Reportable 10/02/19 06:13 Smudge Cells Not Reportable 10/02/19 06:13 Toxic Granulation Not Reportable 10/02/19 06:13 Toxic Vacuolation Not Reportable 10/02/19 06:13 Dohle Bodies Not Reportable 10/02/19 06:13 Pelger-Huet Anomaly Not Reportable 10/02/19 06:13 Lia Rods Not Reportable 10/02/19 06:13 Platelet Estimate Consistent w auto 10/02/19 06:13 Clumped Platelets Not Reportable 10/02/19 06:13 Plt Clumps, EDTA Not Reportable 10/02/19 06:13 Large Platelets Not Reportable 10/02/19 06:13 Giant Platelets Not Reportable 10/02/19 06:13 Platelet Satelliting Not Reportable 10/02/19 06:13 Plt Morphology Comment Not Reportable 10/02/19 06:13 RBC Morphology Not Reportable 10/02/19 06:13 Dimorphic RBCs Not Reportable 10/02/19 06:13 Polychromasia Not Reportable 10/02/19 06:13 Hypochromasia Not Reportable 10/02/19 06:13 Poikilocytosis Not Reportable 10/02/19 06:13 Anisocytosis 1+ 10/02/19 06:13 Microcytosis Not Reportable 10/02/19 06:13 Macrocytosis Not Reportable 10/02/19 06:13 Spherocytes Not Reportable 10/02/19 06:13 Pappenheimer Bodies Not Reportable 10/02/19 06:13 Sickle Cells Not Reportable 10/02/19 06:13 Target Cells Not Reportable 10/02/19 06:13 Tear Drop Cells Not Reportable 10/02/19 06:13 Ovalocytes Not Reportable 10/02/19 06:13 Helmet Cells Not Reportable 10/02/19 06:13 [place] Bodies Not Reportable 10/02/19 06:13 [place] Rings Not Reportable 10/02/19 06:13 Karma Cells Not Reportable 10/02/19 06:13 Bite Cells Not Reportable 10/02/19 06:13 Crenated Cell Not Reportable 10/02/19 06:13 Elliptocytes Not Reportable 10/02/19 06:13 Acanthocytes (Spur) Not Reportable 10/02/19 06:13 Rouleaux Not Reportable 10/02/19 06:13 Hemoglobin C Crystals Not Reportable 10/02/19 06:13 Schistocytes Not Reportable 10/02/19 06:13 Malaria parasites Not Reportable 10/02/19 06:13 [place] Bodies Not Reportable 10/02/19 06:13 Hem Pathologist Commnt No 10/02/19 06:13 PT 13.6 Sec. (12.2-14.9) 10/01/19 03:53 INR 1.03 (0.87-1.13) 10/01/19 03:53 ABG pH 7.369 pH Units (7.350-7.450) 10/01/19 04:35 ABG pCO2 43.3 mm Hg 10/01/19 04:35 ABG pO2 76.2 mm Hg (80.0-90.0) L 10/01/19 04:35 ABG HCO3 24.4 mmol/L (20.0-26.0) 10/01/19 04:35 ABG O2 Saturation 95.6 % (95.0-99.0) 10/01/19 04:35 ABG O2 Content 19.5 (0.0-44) 10/01/19 04:35 ABG Base Excess -1.0 mmol/L (-2.0-3.0) 10/01/19 04:35 ABG Hemoglobin 15.0 gm/dl (14.0-18.0) 10/01/19 04:35 ABG Carboxyhemoglobin 2.8 % (0.0-5.0) 10/01/19 04:35 ABG Methemoglobin 0.6 % (0.0-1.5) 10/01/19 04:35 Oxyhemoglobin 92.4 % (95.0-99.0) L 10/01/19 04:35 FiO2 28 % 10/01/19 04:35 Sodium 128 mmol/L (137-145) L 10/02/19 06:13 Potassium 4.5 mmol/L (3.6-5.0) 10/02/19 06:13 Chloride 92.6 mmol/L (98-107) L 10/02/19 06:13 Carbon Dioxide 21 mmol/L (22-30) L 10/02/19 06:13 Anion Gap 19 mmol/L 10/02/19 06:13 BUN 13 mg/dL (9-20) 10/02/19 06:13 Creatinine 0.7 mg/dL (0.8-1.5) L 10/02/19 06:13 Estimated GFR > 60 ml/min 10/02/19 06:13 BUN/Creatinine Ratio 19 % 10/02/19 06:13 Glucose 125 mg/dL (75-100) H 10/02/19 06:13 Calcium 9.0 mg/dL (8.4-10.2) 10/02/19 06:13 Total Bilirubin 0.30 mg/dL (0.1-1.2) 10/01/19 03:53 AST 20 units/L (5-40) 10/01/19 03:53 ALT 11 units/L (7-56) 10/01/19 03:53 Alkaline Phosphatase 92 units/L (35-129) 10/01/19 03:53 Troponin T < 0.010 ng/mL (0.00-0.029) 10/01/19 03:53 NT-Pro-B Natriuret Pep 199.4 pg/mL (0-900) 10/01/19 03:53 Total Protein 8.1 g/dL (6.3-8.2) 10/01/19 03:53 Albumin 4.3 g/dL (3.9-5) 10/01/19 03:53 Albumin/Globulin Ratio 1.1 % 10/01/19 03:53 Kevin/IV: Voiding Method Toilet IV Catheter Type [Left INT / Saline Lock Antecubital] Active Medications - Current Medications Current Medications: Generic Name Dose Route Start Last Admin Trade Name Freq PRN Reason Stop Dose Admin Acetaminophen 650 mg 10/01/19 06:10 Tylenol PO Q4H PRN Pain MILD(1-3)/Fever >100.5/KAMARA Albuterol/Ipratropium 1 ampul 10/01/19 08:00 10/02/19 04:04 Duoneb *Not For Prn Use* IH 1 ampul Q6HRT HERIBERTO Administration Enoxaparin Sodium 40 mg 10/01/19 10:00 10/01/19 11:59 Enoxaparin SUB-Q 40 mg QDAY HERIBERTO Administration Sodium Chloride 1,000 mls @ 100 mls/hr 10/02/19 08:45 Nacl 0.9% 1000 Ml IV DIRECT HERIBERTO Methylprednisolone Sodium Succinate 60 mg 10/02/19 10:00 Solu-Medrol IV Q6HR HERIBERTO Ondansetron HCl 4 mg 10/01/19 06:10 Zofran IV Q8H PRN Nausea And Vomiting Sodium Chloride 10 ml 10/01/19 10:00 10/02/19 00:32 Sodium Chloride Flush Syringe 10 Ml IV 10 ml BID HERIBERTO Administration Sodium Chloride 10 ml 10/01/19 06:10 Sodium Chloride Flush Syringe 10 Ml IV PRN PRN LINE FLUSH Nutrition/Malnutrition Assess - Dietary Evaluation Nutrition/Malnutrition Findings: Nutrition Notes Start: 10/01/19 11:40 Freq: Status: Active Protocol: Document 10/01/19 11:40 [email or web address] (Rec: 10/01/19 11:43 NHALL [email or web address]- [email or web address]) Nutrition Notes Need for Assessment generated from: MD Order,merchandise processor,MST Initial or Follow up Brief Note Current Diagnosis COPD,Hypertension Other Pertinent Diagnosis COPD exacerbation Current Diet Cardiac Labs/Tests Na 128 Pertinent Medications Solumedrol Height 5 ft 10 in Weight 68.039 kg [place] Body Weight (kg) 75.45 BMI 21.5 Weight Status Appropriate Subjective/Other Information RD consulted for poor oral intake; pt also screened for malnutrition risk (wt loss, poor appetite). MD ordered ONS. Burn Absent Trauma Absent Minimum of two criteria No Is patient on ventilator? No Is Patient Ambulatory and/or Out of Bed Yes REE-([facility]-ambulatory/OOB) [ [id number] [id number]] Calculation Used for Recommendations [facility] Additional Notes Pro needs 1-1.2g/k-82g/ day Fluid needs 1ml/kcal Nutrition Intervention Anticipated Discharge Needs: Unable to identify at this time Follow-Up By: 10/03/19 Additional Comments F/U intakes, wt assessment
[2019-10-02] MEDS ORDERED: TIOTROPIUM 18 MCG CAP INHALATION IH SCH (10:00)
[2019-10-02] MEDS ORDERED: METOPROLOL TARTRATE 25 MG TAB PO SCH (10:00)
[2019-10-02] MEDS: SODIUM CHLORIDE 0.9% 1000 ML 1,000 ML IV SCH ×2 (10:18→23:23)
[2019-10-02] MEDS: ASPIRIN 81 MG TAB CHEW PO SCH (10:19)
[2019-10-02] MEDS: ENOXAPARIN 40 MG/0.4 ML INJ SUB-Q SCH (10:22)
[2019-10-02] MEDS: METOPROLOL TARTRATE 50 MG TAB PO SCH ×2 (10:23→21:16)
[2019-10-02] MEDS: ALPRAZolam 0.25 MG TAB PO PRN ×2 (10:35→18:17)
[2019-10-02] MEDS: ACETAMINOPHEN 325 MG TAB PO PRN ×2 (10:40→18:15)
[2019-10-02] MEDS: NICOTINE 14 MG/24 HR PATCH TD SCH (13:08)
[2019-10-03] MEDS: ACETAMINOPHEN 325 MG TAB PO PRN ×2 (00:21→05:22)
[2019-10-03] MEDS: IPRATROPIUM/ALBUTEROL SULFATE 3 ML AMPUL.NEB IH SCH ×4 (02:10→20:39)
[2019-10-03] MEDS: ALPRAZolam 0.25 MG TAB PO PRN ×3 (02:30→20:37)
[2019-10-03] MEDS: methylPREDNISolone Sod Succinate 125 MG/2 ML INJ IV SCH ×3 (05:22→18:07)
[2019-10-03] MEDS: ASPIRIN 81 MG TAB CHEW PO SCH (09:40)
[2019-10-03] MEDS: ENOXAPARIN 40 MG/0.4 ML INJ SUB-Q SCH (09:40)
[2019-10-03] MEDS: METOPROLOL TARTRATE 50 MG TAB PO SCH ×2 (09:41→22:05)
[2019-10-03] MEDS: NICOTINE 14 MG/24 HR PATCH TD SCH (09:41)
[2019-10-03] MEDS: SODIUM CHLORIDE 0.9% 1000 ML 1,000 ML IV SCH (12:03)
[2019-10-03 13:43] LABS: BUN/Creatinine Ratio 23; Blood Urea Nitrogen 14 mg/dL (9-20); Calcium 8.6 mg/dL (8.4-10.2); Hemolysis Index 8
--- NOTE | 2019-10-03 13:53 | Progress Note ---
Assessment and Plan Assessment and plan: --Acute exacerbation of COPD ; Oxygen titrate O2 sats to more than 90% , nebulizers Tapering dose of IV steroids, inhalation steroids Add Claritin supportive care --Hyponatremia; sodium today is 131 mild improvement, Closely monitor electrolytes --Hypertension; well controlled Continue current antihypertensives and PRN medications --Ongoing tobacco use; Smoking cessation counseling, advised nicotine patch Preventive measures discussed with the patient Spent 17 minutes --DVT prophylaxis; Lovenox Monitor closely and adjust management as needed Possible discharge in 1 to 2 days if stable History Interval history: Patient seen and examined and the bedside this morning Patient's chart and medications reviewed Patient complains of worsening shortness of breath And wheezing, minimally improved since admission Alert awake oriented Mild distress Vital signs reviewed Hospitalist Physical - Constitutional Vitals: Temp Pulse Resp BP Pulse Ox 97.4 F L 89 18 122/85 90 10/03/19 08:25 10/03/19 10:10 10/03/19 10:10 10/03/19 09:41 10/03/19 10:00 General appearance: Present: mild distress, well-nourished - EENT Eyes: Present: PERRL, EOM intact - Neck Neck: Present: supple, normal ROM - Respiratory Respiratory effort: normal Respiratory: bilateral: diminished, rhonchi, wheezing, negative: rales - Cardiovascular Rhythm: regular Heart Sounds: Present: S1 & S2 - Extremities Extremities: no ischemia, No edema - Abdominal General gastrointestinal: soft, non-tender, non-distended, normal bowel sounds - Integumentary Integumentary: Present: clear, warm - Psychiatric Psychiatric: appropriate mood/affect, cooperative - Neurologic Neurologic: CNII-XII intact, moves all extremities TADEO score - Tadeo Score Age > 65: (1) Yes Aspirin use within the Past 7 Days: (1) Yes 3 or more CAD Risk Factors: (0) No 2 or more Angina events in past 24 hrs: (0) No Known CAD with more than 50% Stenosis: (0) No Elevated Cardiac Markers: (0) No ST Deviation Greater than 0.5mm: (0) No TADEO Score: 2 Results - Labs CBC & Chem 7: 10/02/19 06:13 10/03/19 12:42 Labs: Laboratory Last Values WBC 10.2 K/mm3 (4.5-11.0) 10/02/19 06:13 RBC 4.45 M/mm3 (3.65-5.03) 10/02/19 06:13 Hgb 13.6 gm/dl (11.8-15.2) 10/02/19 06:13 Hct 40.1 % (35.5-45.6) 10/02/19 06:13 MCV 90 fl (84-94) 10/02/19 06:13 MCH 31 pg (28-32) 10/02/19 06:13 MCHC 34 % (32-34) 10/02/19 06:13 RDW 13.0 % (13.2-15.2) L 10/02/19 06:13 Plt Count 193 K/mm3 (140-440) 10/02/19 06:13 Lymph % (Auto) 23.0 % (13.4-35.0) 10/01/19 03:53 [place] % (Auto) 11.3 % (0.0-7.3) H 10/01/19 03:53 Eos % (Auto) 1.3 % (0.0-4.3) 10/01/19 03:53 Baso % (Auto) 0.5 % (0.0-1.8) 10/01/19 03:53 Lymph # 1.8 K/mm3 (1.2-5.4) 10/01/19 03:53 [place] # 0.9 K/mm3 (0.0-0.8) H 10/01/19 03:53 Eos # 0.1 K/mm3 (0.0-0.4) 10/01/19 03:53 Baso # 0.0 K/mm3 (0.0-0.1) 10/01/19 03:53 Add Manual Diff Complete 10/02/19 06:13 Total Counted 100 10/02/19 06:13 Seg Neutrophils % Watch And Clock Maker And Repairer 10/02/19 06:13 Seg Neuts % (Manual) 94.0 % (40.0-70.0) H 10/02/19 06:13 Band Neutrophils % 0 % 10/02/19 06:13 Lymphocytes % (Manual) 4.0 % (13.4-35.0) L 10/02/19 06:13 Reactive Lymphs % (Man) 0 % 10/02/19 06:13 Monocytes % (Manual) 2.0 % (0.0-7.3) 10/02/19 06:13 Eosinophils % (Manual) 0 % (0.0-4.3) 10/02/19 06:13 Basophils % (Manual) 0 % (0.0-1.8) 10/02/19 06:13 Metamyelocytes % 0 % 10/02/19 06:13 Myelocytes % 0 % 10/02/19 06:13 Promyelocytes % 0 % 10/02/19 06:13 Blast Cells % 0 % 10/02/19 06:13 Nucleated RBC % Not Reportable 10/02/19 06:13 Seg Neutrophils # 4.9 K/mm3 (1.8-7.7) 10/01/19 03:53 Seg Neutrophils # Man 9.6 K/mm3 (1.8-7.7) H 10/02/19 06:13 Band Neutrophils # 0.0 K/mm3 10/02/19 06:13 Lymphocytes # (Manual) 0.4 K/mm3 (1.2-5.4) L 10/02/19 06:13 Abs React Lymphs (Man) 0.0 K/mm3 10/02/19 06:13 Monocytes # (Manual) 0.2 K/mm3 (0.0-0.8) 10/02/19 06:13 Eosinophils # (Manual) 0.0 K/mm3 (0.0-0.4) 10/02/19 06:13 Basophils # (Manual) 0.0 K/mm3 (0.0-0.1) 10/02/19 06:13 Metamyelocytes # 0.0 K/mm3 10/02/19 06:13 Myelocytes # 0.0 K/mm3 10/02/19 06:13 Promyelocytes # 0.0 K/mm3 10/02/19 06:13 Blast Cells # 0.0 K/mm3 10/02/19 06:13 WBC Morphology Not Reportable 10/02/19 06:13 Hypersegmented Neuts Not Reportable 10/02/19 06:13 Hyposegmented Neuts Not Reportable 10/02/19 06:13 Hypogranular Neuts Not Reportable 10/02/19 06:13 Smudge Cells Not Reportable 10/02/19 06:13 Toxic Granulation Not Reportable 10/02/19 06:13 Toxic Vacuolation Not Reportable 10/02/19 06:13 Dohle Bodies Not Reportable 10/02/19 06:13 Pelger-Huet Anomaly Not Reportable 10/02/19 06:13 Lia Rods Not Reportable 10/02/19 06:13 Platelet Estimate Consistent w auto 10/02/19 06:13 Clumped Platelets Not Reportable 10/02/19 06:13 Plt Clumps, EDTA Not Reportable 10/02/19 06:13 Large Platelets Not Reportable 10/02/19 06:13 Giant Platelets Not Reportable 10/02/19 06:13 Platelet Satelliting Not Reportable 10/02/19 06:13 Plt Morphology Comment Not Reportable 10/02/19 06:13 RBC Morphology Not Reportable 10/02/19 06:13 Dimorphic RBCs Not Reportable 10/02/19 06:13 Polychromasia Not Reportable 10/02/19 06:13 Hypochromasia Not Reportable 10/02/19 06:13 Poikilocytosis Not Reportable 10/02/19 06:13 Anisocytosis 1+ 10/02/19 06:13 Microcytosis Not Reportable 10/02/19 06:13 Macrocytosis Not Reportable 10/02/19 06:13 Spherocytes Not Reportable 10/02/19 06:13 Pappenheimer Bodies Not Reportable 10/02/19 06:13 Sickle Cells Not Reportable 10/02/19 06:13 Target Cells Not Reportable 10/02/19 06:13 Tear Drop Cells Not Reportable 10/02/19 06:13 Ovalocytes Not Reportable 10/02/19 06:13 Helmet Cells Not Reportable 10/02/19 06:13 [place] Bodies Not Reportable 10/02/19 06:13 [place] Rings Not Reportable 10/02/19 06:13 Karma Cells Not Reportable 10/02/19 06:13 Bite Cells Not Reportable 10/02/19 06:13 Crenated Cell Not Reportable 10/02/19 06:13 Elliptocytes Not Reportable 10/02/19 06:13 Acanthocytes (Spur) Not Reportable 10/02/19 06:13 Rouleaux Not Reportable 10/02/19 06:13 Hemoglobin C Crystals Not Reportable 10/02/19 06:13 Schistocytes Not Reportable 10/02/19 06:13 Malaria parasites Not Reportable 10/02/19 06:13 Patrick Bodies Not Reportable 10/02/19 06:13 Hem Pathologist Commnt No 10/02/19 06:13 PT 13.6 Sec. (12.2-14.9) 10/01/19 03:53 INR 1.03 (0.87-1.13) 10/01/19 03:53 ABG pH 7.369 pH Units (7.350-7.450) 10/01/19 04:35 ABG pCO2 43.3 mm Hg 10/01/19 04:35 ABG pO2 76.2 mm Hg (80.0-90.0) L 10/01/19 04:35 ABG HCO3 24.4 mmol/L (20.0-26.0) 10/01/19 04:35 ABG O2 Saturation 95.6 % (95.0-99.0) 10/01/19 04:35 ABG O2 Content 19.5 (0.0-44) 10/01/19 04:35 ABG Base Excess -1.0 mmol/L (-2.0-3.0) 10/01/19 04:35 ABG Hemoglobin 15.0 gm/dl (14.0-18.0) 10/01/19 04:35 ABG Carboxyhemoglobin 2.8 % (0.0-5.0) 10/01/19 04:35 ABG Methemoglobin 0.6 % (0.0-1.5) 10/01/19 04:35 Oxyhemoglobin 92.4 % (95.0-99.0) L 10/01/19 04:35 FiO2 28 % 10/01/19 04:35 Sodium 128 mmol/L (137-145) L 10/02/19 06:13 Potassium 4.5 mmol/L (3.6-5.0) 10/02/19 06:13 Chloride 92.6 mmol/L (98-107) L 10/02/19 06:13 Carbon Dioxide 21 mmol/L (22-30) L 10/02/19 06:13 Anion Gap 19 mmol/L 10/02/19 06:13 BUN 13 mg/dL (9-20) 10/02/19 06:13 Creatinine 0.7 mg/dL (0.8-1.5) L 10/02/19 06:13 Estimated GFR > 60 ml/min 10/02/19 06:13 BUN/Creatinine Ratio 19 % 10/02/19 06:13 Glucose 125 mg/dL (75-100) H 10/02/19 06:13 Calcium 9.0 mg/dL (8.4-10.2) 10/02/19 06:13 Total Bilirubin 0.30 mg/dL (0.1-1.2) 10/01/19 03:53 AST 20 units/L (5-40) 10/01/19 03:53 ALT 11 units/L (7-56) 10/01/19 03:53 Alkaline Phosphatase 92 units/L (35-129) 10/01/19 03:53 Troponin T < 0.010 ng/mL (0.00-0.029) 10/01/19 03:53 NT-Pro-B Natriuret Pep 199.4 pg/mL (0-900) 10/01/19 03:53 Total Protein 8.1 g/dL (6.3-8.2) 10/01/19 03:53 Albumin 4.3 g/dL (3.9-5) 10/01/19 03:53 Albumin/Globulin Ratio 1.1 % 10/01/19 03:53 Microbiology: Microbiology 10/01/19 11:40 Nares - Right MRSA Culture - Final Kevin/IV: Voiding Method Urinal IV Catheter Type [Left INT / Saline Lock Antecubital] Active Medications - Current Medications Current Medications: Generic Name Dose Route Start Last Admin Trade Name Freq PRN Reason Stop Dose Admin Acetaminophen 650 mg 10/01/19 06:10 10/03/19 05:22 Tylenol PO 650 mg Q4H PRN Administration Pain MILD(1-3)/Fever >100.5/KAMARA Albuterol/Ipratropium 1 ampul 10/01/19 08:00 10/03/19 09:23 Duoneb *Not For Prn Use* IH 1 ampul Q6HRT HERIBERTO Administration Alprazolam 0.125 mg 10/02/19 08:46 10/03/19 11:57 Xanax PO 0.125 mg Q8H PRN Administration Anxiety Aspirin 81 mg 10/02/19 10:00 10/03/19 09:40 Baby Aspirin PO 81 mg DAILY HERIBERTO Administration Enoxaparin Sodium 40 mg 10/01/19 10:00 10/03/19 09:40 Enoxaparin SUB-Q 40 mg QDAY HERIBERTO Administration Sodium Chloride 1,000 mls @ 100 mls/hr 10/02/19 08:45 10/03/19 12:03 Nacl 0.9% 1000 Ml IV 100 mls/hr DIRECT HERIBERTO Administration Methylprednisolone Sodium Succinate 60 mg 10/02/19 10:00 10/03/19 11:57 Solu-Medrol IV 60 mg Q6HR HERIBERTO Administration Metoprolol Tartrate 50 mg 10/02/19 10:00 10/03/19 09:41 Metoprolol PO 50 mg BID HERIBERTO Administration Nicotine 14 mg 10/02/19 13:00 10/03/19 09:41 Habitrol TD 14 mg QDAY HERIBERTO Administration Ondansetron HCl 4 mg 10/01/19 06:10 Zofran IV Q8H PRN Nausea And Vomiting Oxycodone/Acetaminophen 1 tab 10/03/19 11:55 Percocet 5/325 PO Q6H PRN Pain, Moderate (4-6) Sodium Chloride 10 ml 10/01/19 10:00 10/03/19 09:41 Sodium Chloride Flush Syringe 10 Ml IV 10 ml BID HERIBERTO Administration Sodium Chloride 10 ml 10/01/19 06:10 Sodium Chloride Flush Syringe 10 Ml IV PRN PRN LINE FLUSH Nutrition/Malnutrition Assess - Dietary Evaluation Nutrition/Malnutrition Findings: Nutrition Notes Start: 10/01/19 11:40 Freq: Status: Active Protocol: Document 10/01/19 11:40 [email or web address] (Rec: 10/01/19 11:43 [facility] [email or web address]) Nutrition Notes Need for Assessment generated from: MD Order,layaway clerk,MST Initial or Follow up Brief Note Current Diagnosis COPD,Hypertension Other Pertinent Diagnosis COPD exacerbation Current Diet Cardiac Labs/Tests Na 128 Pertinent Medications Solumedrol Height 5 ft 10 in Weight 68.039 kg [place] Body Weight (kg) 75.45 BMI 21.5 Weight Status Appropriate Subjective/Other Information RD consulted for poor oral intake; pt also screened for malnutrition risk (wt loss, poor appetite). MD ordered ONS. Burn Absent Trauma Absent Minimum of two criteria No Is patient on ventilator? No Is Patient Ambulatory and/or Out of Bed Yes REE-([facility]-ambulatory/OOB) [ 1932.632 NUTR.MSJOOB] Calculation Used for Recommendations [facility] Additional Notes Pro needs 1-1.2g/k-82g/ day Fluid needs 1ml/kcal Nutrition Intervention Anticipated Discharge Needs: Unable to identify at this time Follow-Up By: 10/03/19 Additional Comments F/U intakes, wt assessment
[2019-10-03] MEDS ORDERED: CETIRIZINE 10 MG TAB PO ONE ×2 (13:55→17:00)
[2019-10-03] MEDS ORDERED: FUROSEMIDE 40 MG/4 ML INJ IV ONE ×2 (13:55→17:00)
[2019-10-03] MEDS: oxyCODONE /ACETAMINOPHEN 5-325MG TAB PO PRN ×2 (16:46→22:07)
[2019-10-03] MEDS: BUDESONIDE 0.5 MG/2 ML NEBU IH SCH (20:39)
[2019-10-04] MEDS: methylPREDNISolone Sod Succinate 125 MG/2 ML INJ IV SCH ×5 (00:42→21:03)
[2019-10-04] MEDS: IPRATROPIUM/ALBUTEROL SULFATE 3 ML AMPUL.NEB IH SCH ×4 (04:20→20:43)
[2019-10-04] MEDS: ACETAMINOPHEN 325 MG TAB PO PRN ×2 (07:11→21:09)
[2019-10-04] MEDS: BUDESONIDE 0.5 MG/2 ML NEBU IH SCH ×2 (08:07→20:43)
[2019-10-04] MEDS: ENOXAPARIN 40 MG/0.4 ML INJ SUB-Q SCH (09:23)
[2019-10-04] MEDS: NICOTINE 14 MG/24 HR PATCH TD SCH (09:24)
[2019-10-04] MEDS: ASPIRIN 81 MG TAB CHEW PO SCH (09:25)
[2019-10-04] MEDS: METOPROLOL TARTRATE 50 MG TAB PO SCH ×2 (09:25→21:04)
[2019-10-04] MEDS: oxyCODONE /ACETAMINOPHEN 5-325MG TAB PO PRN ×3 (09:28→23:12)
[2019-10-04] MEDS: CETIRIZINE 10 MG TAB PO SCH (09:29)
[2019-10-04] MEDS: ALPRAZolam 0.25 MG TAB PO PRN ×2 (12:10→21:04)
--- NOTE | 2019-10-04 18:58 | Progress Note ---
Assessment and Plan Assessment and plan: --Hyponatremia;sodium improved from 128 to 131 mild improvement, Closely monitor electrolytes --Acute exacerbation of COPD ; patient still has extensive wheeze Oxygen titrate O2 sats to more than 90% , nebulizers Tapering dose of IV steroids, inhalation steroids Add Claritin supportive care --Hypertension; well controlled Continue current antihypertensives and PRN medications --Ongoing tobacco use; Smoking cessation counseling, advised nicotine patch Preventive measures discussed with the patient Spent 17 minutes --DVT prophylaxis; Lovenox Monitor closely and adjust management as needed Possible discharge in 1 to 2 days if stable History Interval history: Patient seen and examined this morning at the bedside Patient's chart and medications reviewed Patient continues to have shortness of breath and wheezing Slightly improved since yesterday Also complains of productive cough Denies chest pain Alert awake oriented Mild distress Vital signs reviewed Hospitalist Physical - Constitutional Vitals: Temp Pulse Resp BP Pulse Ox 98.1 F 111 H 18 121/85 94 10/04/19 16:05 10/04/19 16:05 10/04/19 16:05 10/04/19 16:05 10/04/19 16:05 General appearance: Present: mild distress, well-nourished - EENT Eyes: Present: PERRL, EOM intact - Neck Neck: Present: supple, normal ROM - Respiratory Respiratory effort: normal Respiratory: bilateral: diminished, rhonchi, wheezing - Cardiovascular Rhythm: regular Heart Sounds: Present: S1 & S2 - Extremities Extremities: no ischemia, pulses intact - Abdominal General gastrointestinal: soft, non-tender, non-distended, normal bowel sounds - Integumentary Integumentary: Present: clear, warm - Psychiatric Psychiatric: appropriate mood/affect, cooperative - Neurologic Neurologic: CNII-XII intact, moves all extremities TADEO score - Tadeo Score Age > 65: (1) Yes Aspirin use within the Past 7 Days: (1) Yes 3 or more CAD Risk Factors: (0) No 2 or more Angina events in past 24 hrs: (0) No Known CAD with more than 50% Stenosis: (0) No Elevated Cardiac Markers: (0) No ST Deviation Greater than 0.5mm: (0) No TADEO Score: 2 Results - Labs CBC & Chem 7: 10/02/19 06:13 10/03/19 12:42 Labs: Laboratory Last Values WBC 10.2 K/mm3 (4.5-11.0) 10/02/19 06:13 RBC 4.45 M/mm3 (3.65-5.03) 10/02/19 06:13 Hgb 13.6 gm/dl (11.8-15.2) 10/02/19 06:13 Hct 40.1 % (35.5-45.6) 10/02/19 06:13 MCV 90 fl (84-94) 10/02/19 06:13 MCH 31 pg (28-32) 10/02/19 06:13 MCHC 34 % (32-34) 10/02/19 06:13 RDW 13.0 % (13.2-15.2) L 10/02/19 06:13 Plt Count 193 K/mm3 (140-440) 10/02/19 06:13 Lymph % (Auto) 23.0 % (13.4-35.0) 10/01/19 03:53 [place] % (Auto) 11.3 % (0.0-7.3) H 10/01/19 03:53 Eos % (Auto) 1.3 % (0.0-4.3) 10/01/19 03:53 Baso % (Auto) 0.5 % (0.0-1.8) 10/01/19 03:53 Lymph # 1.8 K/mm3 (1.2-5.4) 10/01/19 03:53 [place] # 0.9 K/mm3 (0.0-0.8) H 10/01/19 03:53 Eos # 0.1 K/mm3 (0.0-0.4) 10/01/19 03:53 Baso # 0.0 K/mm3 (0.0-0.1) 10/01/19 03:53 Add Manual Diff Complete 10/02/19 06:13 Total Counted 100 10/02/19 06:13 Seg Neutrophils % Aluminum Molding Machine Operator 10/02/19 06:13 Seg Neuts % (Manual) 94.0 % (40.0-70.0) H 10/02/19 06:13 Band Neutrophils % 0 % 10/02/19 06:13 Lymphocytes % (Manual) 4.0 % (13.4-35.0) L 10/02/19 06:13 Reactive Lymphs % (Man) 0 % 10/02/19 06:13 Monocytes % (Manual) 2.0 % (0.0-7.3) 10/02/19 06:13 Eosinophils % (Manual) 0 % (0.0-4.3) 10/02/19 06:13 Basophils % (Manual) 0 % (0.0-1.8) 10/02/19 06:13 Metamyelocytes % 0 % 10/02/19 06:13 Myelocytes % 0 % 10/02/19 06:13 Promyelocytes % 0 % 10/02/19 06:13 Blast Cells % 0 % 10/02/19 06:13 Nucleated RBC % Not Reportable 10/02/19 06:13 Seg Neutrophils # 4.9 K/mm3 (1.8-7.7) 10/01/19 03:53 Seg Neutrophils # Man 9.6 K/mm3 (1.8-7.7) H 10/02/19 06:13 Band Neutrophils # 0.0 K/mm3 10/02/19 06:13 Lymphocytes # (Manual) 0.4 K/mm3 (1.2-5.4) L 10/02/19 06:13 Abs React Lymphs (Man) 0.0 K/mm3 10/02/19 06:13 Monocytes # (Manual) 0.2 K/mm3 (0.0-0.8) 10/02/19 06:13 Eosinophils # (Manual) 0.0 K/mm3 (0.0-0.4) 10/02/19 06:13 Basophils # (Manual) 0.0 K/mm3 (0.0-0.1) 10/02/19 06:13 Metamyelocytes # 0.0 K/mm3 10/02/19 06:13 Myelocytes # 0.0 K/mm3 10/02/19 06:13 Promyelocytes # 0.0 K/mm3 10/02/19 06:13 Blast Cells # 0.0 K/mm3 10/02/19 06:13 WBC Morphology Not Reportable 10/02/19 06:13 Hypersegmented Neuts Not Reportable 10/02/19 06:13 Hyposegmented Neuts Not Reportable 10/02/19 06:13 Hypogranular Neuts Not Reportable 10/02/19 06:13 Smudge Cells Not Reportable 10/02/19 06:13 Toxic Granulation Not Reportable 10/02/19 06:13 Toxic Vacuolation Not Reportable 10/02/19 06:13 Dohle Bodies Not Reportable 10/02/19 06:13 Pelger-Huet Anomaly Not Reportable 10/02/19 06:13 Lia Rods Not Reportable 10/02/19 06:13 Platelet Estimate Consistent w auto 10/02/19 06:13 Clumped Platelets Not Reportable 10/02/19 06:13 Plt Clumps, EDTA Not Reportable 10/02/19 06:13 Large Platelets Not Reportable 10/02/19 06:13 Giant Platelets Not Reportable 10/02/19 06:13 Platelet Satelliting Not Reportable 10/02/19 06:13 Plt Morphology Comment Not Reportable 10/02/19 06:13 RBC Morphology Not Reportable 10/02/19 06:13 Dimorphic RBCs Not Reportable 10/02/19 06:13 Polychromasia Not Reportable 10/02/19 06:13 Hypochromasia Not Reportable 10/02/19 06:13 Poikilocytosis Not Reportable 10/02/19 06:13 Anisocytosis 1+ 10/02/19 06:13 Microcytosis Not Reportable 10/02/19 06:13 Macrocytosis Not Reportable 10/02/19 06:13 Spherocytes Not Reportable 10/02/19 06:13 Pappenheimer Bodies Not Reportable 10/02/19 06:13 Sickle Cells Not Reportable 10/02/19 06:13 Target Cells Not Reportable 10/02/19 06:13 Tear Drop Cells Not Reportable 10/02/19 06:13 Ovalocytes Not Reportable 10/02/19 06:13 Helmet Cells Not Reportable 10/02/19 06:13 [place] Bodies Not Reportable 10/02/19 06:13 [place] Rings Not Reportable 10/02/19 06:13 Karma Cells Not Reportable 10/02/19 06:13 Bite Cells Not Reportable 10/02/19 06:13 Crenated Cell Not Reportable 10/02/19 06:13 Elliptocytes Not Reportable 10/02/19 06:13 Acanthocytes (Spur) Not Reportable 10/02/19 06:13 Rouleaux Not Reportable 10/02/19 06:13 Hemoglobin C Crystals Not Reportable 10/02/19 06:13 Schistocytes Not Reportable 10/02/19 06:13 Malaria parasites Not Reportable 10/02/19 06:13 Patrick Bodies Not Reportable 10/02/19 06:13 Hem Pathologist Commnt No 10/02/19 06:13 PT 13.6 Sec. (12.2-14.9) 10/01/19 03:53 INR 1.03 (0.87-1.13) 10/01/19 03:53 ABG pH 7.369 pH Units (7.350-7.450) 10/01/19 04:35 ABG pCO2 43.3 mm Hg 10/01/19 04:35 ABG pO2 76.2 mm Hg (80.0-90.0) L 10/01/19 04:35 ABG HCO3 24.4 mmol/L (20.0-26.0) 10/01/19 04:35 ABG O2 Saturation 95.6 % (95.0-99.0) 10/01/19 04:35 ABG O2 Content 19.5 (0.0-44) 10/01/19 04:35 ABG Base Excess -1.0 mmol/L (-2.0-3.0) 10/01/19 04:35 ABG Hemoglobin 15.0 gm/dl (14.0-18.0) 10/01/19 04:35 ABG Carboxyhemoglobin 2.8 % (0.0-5.0) 10/01/19 04:35 ABG Methemoglobin 0.6 % (0.0-1.5) 10/01/19 04:35 Oxyhemoglobin 92.4 % (95.0-99.0) L 10/01/19 04:35 FiO2 28 % 10/01/19 04:35 Sodium 131 mmol/L (137-145) L 10/03/19 12:42 Potassium 4.1 mmol/L (3.6-5.0) 10/03/19 12:42 Chloride 94.3 mmol/L (98-107) L 10/03/19 12:42 Carbon Dioxide 27 mmol/L (22-30) 10/03/19 12:42 Anion Gap 14 mmol/L 10/03/19 12:42 BUN 14 mg/dL (9-20) 10/03/19 12:42 Creatinine 0.6 mg/dL (0.8-1.5) L 10/03/19 12:42 Estimated GFR > 60 ml/min 10/03/19 12:42 BUN/Creatinine Ratio 23 % 10/03/19 12:42 Glucose 107 mg/dL (75-100) H 10/03/19 12:42 Calcium 8.6 mg/dL (8.4-10.2) 10/03/19 12:42 Total Bilirubin 0.30 mg/dL (0.1-1.2) 10/01/19 03:53 AST 20 units/L (5-40) 10/01/19 03:53 ALT 11 units/L (7-56) 10/01/19 03:53 Alkaline Phosphatase 92 units/L (35-129) 10/01/19 03:53 Troponin T < 0.010 ng/mL (0.00-0.029) 10/01/19 03:53 NT-Pro-B Natriuret Pep 199.4 pg/mL (0-900) 10/01/19 03:53 Total Protein 8.1 g/dL (6.3-8.2) 10/01/19 03:53 Albumin 4.3 g/dL (3.9-5) 10/01/19 03:53 Albumin/Globulin Ratio 1.1 % 10/01/19 03:53 Kevin/IV: Voiding Method Urinal IV Catheter Type [Left INT / Saline Lock Antecubital] Active Medications - Current Medications Current Medications: Generic Name Dose Route Start Last Admin Trade Name Eliasq PRN Reason Stop Dose Admin Acetaminophen 650 mg 10/01/19 06:10 10/04/19 07:11 Tylenol PO 650 mg Q4H PRN Administration Pain MILD(1-3)/Fever >100.5/KAMARA Albuterol/Ipratropium 1 ampul 10/01/19 08:00 10/04/19 15:24 Duoneb *Not For Prn Use* IH 1 ampul Q6HRT HERIBERTO Administration Alprazolam 0.125 mg 10/02/19 08:46 10/04/19 12:10 Xanax PO 0.125 mg Q8H PRN Administration Anxiety Aspirin 81 mg 10/02/19 10:00 10/04/19 09:25 Baby Aspirin PO 81 mg DAILY HERIBERTO Administration Budesonide 0.5 mg 10/03/19 20:00 10/04/19 08:07 Pulmicort IH 0.5 mg Q12HRT HERIBERTO Administration Cetirizine HCl 10 mg 10/04/19 10:00 10/04/19 09:29 Cetirizine PO 10 mg QDAY HERIBERTO Administration Enoxaparin Sodium 40 mg 10/01/19 10:00 10/04/19 09:23 Enoxaparin SUB-Q 40 mg QDAY HERIBERTO Administration Methylprednisolone Sodium Succinate 60 mg 10/02/19 10:00 10/04/19 17:00 Solu-Medrol IV 60 mg Q6HR HERIBERTO Administration Metoprolol Tartrate 50 mg 10/02/19 10:00 10/04/19 09:25 Metoprolol PO 50 mg BID HERIBERTO Administration Nicotine 14 mg 10/02/19 13:00 10/04/19 09:24 Habitrol TD 14 mg QDAY HERIBERTO Administration Ondansetron HCl 4 mg 10/01/19 06:10 Zofran IV Q8H PRN Nausea And Vomiting Oxycodone/Acetaminophen 1 tab 10/03/19 11:55 10/04/19 16:56 Percocet 5/325 PO 1 tab Q6H PRN Administration Pain, Moderate (4-6) Sodium Chloride 10 ml 10/01/19 10:00 10/04/19 09:29 Sodium Chloride Flush Syringe 10 Ml IV 10 ml BID HERIBERTO Administration Sodium Chloride 10 ml 10/01/19 06:10 Sodium Chloride Flush Syringe 10 Ml IV PRN PRN LINE FLUSH Nutrition/Malnutrition Assess - Dietary Evaluation Nutrition/Malnutrition Findings: Nutrition Notes Start: 10/01/19 11:40 Freq: Status: Active Protocol: Document 10/03/19 14:01 LM (Rec: 10/03/19 14:07 LM [email or web address]) Nutrition Notes Initial or Follow up Brief Note Current Diagnosis COPD,Hypertension Other Pertinent Diagnosis COPD exacerbation, nicotine dependence Current Diet Cardiac Labs/Tests Reviewed Pertinent Medications Solumedrol Height 5 ft 10 in Weight 66.8 kg [place] Body Weight (kg) 75.45 BMI 21.1 Weight change and time frame 9% wt loss in 1 month Weight Status Appropriate Subjective/Other Information Unable to speak to pt 2x. Reviewed chart from 08/30/19. Pt weighed 73.5kg, indicating wt loss. Burn Absent Trauma Absent Interpretation of Weight Loss (severe) >5% in 1 month #1 Nutrition Diagnosis Predicted suboptimal energy intake Etiology COPD, nicotine dependence As Evidenced by Signs and Symptoms pt with 9% wt loss in 1 month Is patient on ventilator? No Is Patient Ambulatory and/or Out of Bed Yes REE-([facility]-ambulatory/OOB) [ 1916.525 NUTR.MSJOOB] Calculation Used for Recommendations [facility] Additional Notes Pro needs 1-1.2g/k-82g/ day Fluid needs 1ml/kcal Nutrition Intervention Change Diet Order: Continue Add Supplement/Snack (indicate name/kcal Ensure Enlive BID /protein ) Provides kCal: 700 Provides Protein (gm) 40 Goal #1 Meet at least 75% of energy and protein needs Anticipated Discharge Needs: Cardiac Follow-Up By: 10/07/19 Additional Comments F/U for intakes
[2019-10-05] MEDS: IPRATROPIUM/ALBUTEROL SULFATE 3 ML AMPUL.NEB IH SCH ×3 (01:58→16:03)
[2019-10-05] MEDS: oxyCODONE /ACETAMINOPHEN 5-325MG TAB PO PRN (06:24)
[2019-10-05 06:38] LABS: BUN/Creatinine Ratio 23; Blood Urea Nitrogen 16 mg/dL (9-20); Calcium 8.8 mg/dL (8.4-10.2); Hemolysis Index 5
[2019-10-05] MEDS: BUDESONIDE 0.5 MG/2 ML NEBU IH SCH (08:10)
[2019-10-05] MEDS: methylPREDNISolone Sod Succinate 125 MG/2 ML INJ IV SCH (08:15)
[2019-10-05] MEDS: ENOXAPARIN 40 MG/0.4 ML INJ SUB-Q SCH (10:15)
[2019-10-05] MEDS: CETIRIZINE 10 MG TAB PO SCH (10:15)
[2019-10-05] MEDS: ASPIRIN 81 MG TAB CHEW PO SCH (10:16)
[2019-10-05] MEDS: NICOTINE 14 MG/24 HR PATCH TD SCH (10:16)
[2019-10-05 10:20] VITALS: BP 121/64
[2019-10-05] MEDS: METOPROLOL TARTRATE 50 MG TAB PO SCH (10:20)
[2019-10-05] MEDS: ALPRAZolam 0.25 MG TAB PO PRN (11:45)
--- NOTE | 2019-10-05 12:07 | Discharge Summary ---
Providers - Providers Date of Admission: 10/01/19 06:10 Date of discharge: 10/05/19 Attending physician: FELICITY LEO 10/01/19 11:06 Consult to Dietitian/Nutrition [CONS] Routine Physician Instructions: Reason For Exam: Reason for Consult: Poor oral intake Primary care physician: TECHNICAL SERVICE REPRESENTATIVE Hospitalization Condition: Serious Disposition: DC-01 TO HOME OR SELFCARE Time spent for discharge: 32 min Core Measure Documentation - Palliative Care Palliative Care/ Comfort Measures: Not Applicable - Core Measures Any of the following diagnoses?: none Exam - Constitutional Vitals: Temp Pulse Resp BP Pulse Ox 98.6 F 109 H 17 121/64 97 10/05/19 03:30 10/05/19 10:20 10/05/19 09:00 10/05/19 10:20 10/05/19 09:00 General appearance: Present: no acute distress, well-nourished - EENT Eyes: Present: PERRL, EOM intact - Neck Neck: Present: supple, normal ROM - Respiratory Respiratory effort: normal Respiratory: bilateral: diminished, negative: rales, rhonchi, wheezing Plan Activity: no restrictions Diet: other (cardiac diet) Special Instructions: smoking cessation Additional Instructions: Smoking cessation advised. Advised to see private delivery assistant[lung doctor] in 2 -4 weeks Follow up with: PRIMARY CARE, [Primary Care Provider] - 3-5 Days Prescriptions: Nicotine [Habitrol] 14 mg TD QDAY #30 patch oxyCODONE /ACETAMINOPHEN [Percocet 5/325 mg] 1 tab PO Q6H PRN #12 tablet PRN Reason: Pain, Moderate (4-6)
== END 2019-10-05 15:39 | disposition home or self-care (01) | DRG 191 ==
LOC: SUATTDRO 03:19 → ED 03:19 → 3A 06:10 → 4A 10-02 11:17
PROVIDERS: ADMIT Internal Medicine; ATTEND Internal Medicine
PROC: 4A033R1 Measurement of Arterial Saturation, Peripheral, Percutaneous Approach (ICD-10-PCS; principal; 2019-10-01)
DX: J44.1 Chronic obstructive pulmonary disease with (acute) exacerbation (principal); E87.1 Hypo-osmolality and hyponatremia; I10 Essential (primary) hypertension; F17.210 Nicotine dependence, cigarettes, uncomplicated; Z71.6 Tobacco abuse counseling; Z86.73 Personal history of transient ischemic attack (TIA), and cerebral infarction without residual deficits; Z90.49 Acquired absence of other specified parts of digestive tract; Z79.51 Long term (current) use of inhaled steroids; Z79.01 Long term (current) use of anticoagulants; Z82.49 Family history of ischemic heart disease and other diseases of the circulatory system
CPT/HCPCS: 36415; 71045; 80048; 80053; 82803; 83735; 83880; 84484; 85007; 85025; 85610; 87116; 93005; 93010; 94640; 94760; 99406; G0378; J1650; J1940; J2930; J3475; J7030